=== PATIENT | male | born 1985 | race Caucasian/White ===

== ENCOUNTER 2019-07-30 08:29 | Outpatient (CLI) | payer BC, SELFPAY ==
--- NOTE | 2019-07-31 | US_ITS ---
WS: [id number] Bilateral renal ultrasound, 07/30/2019 Clinical Data: HTN Comparison: None. Findings: The right kidney measures 4.88 cm x 5.2 cm x 12.03 cm and the left kidney is 4.93 cm x 5.46 cm x 11.6 0 cm. There are no cysts, masses or hydronephrosis. The renal cortical margin is normal. No renal padmini culi are seen. The abdominal aorta and inferior vena cava show no vascular abnormalities. The bladder was scanned and was not remarkable. US/US renal BI* [id number] Impression: Negative bilateral renal ultrasound.
== END 2019-07-30 08:30 | disposition home or self-care (01) ==
PROVIDERS: PCP Family Medicine; Visit Provider Family Medicine
DX: I10 Essential (primary) hypertension (principal)
CPT/HCPCS: 76770

== ENCOUNTER 2019-12-17 16:12 | Outpatient (CLI) | payer BC, SELFPAY ==
--- NOTE | 2019-12-17 16:18 | XR_ITS ---
WS: [id number] THORACIC SPINE TECHNIQUE: AP and lateral views are performed. HISTORY: BACK PAIN COMPARISON: None available. Increase in thoracic kyphosis. Pedicles are all identified. Mild degenerative disc disease and osteop hytes most significant at the T11 and T12 levels. No compression fractures are evident. This of mild thickening of the trabecula at T11 and T12 on the lateral radiograph which may be an artifact as they are normal on the AP projection. XR/XR thoracic spine 3V* [id number] IMPRESSION: Moderate spondylosis at the T11 and T12 levels. No fractures identified.
--- NOTE | 2019-12-17 16:18 | XR_ITS ---
WS: [id number] LUMBAR SPINE: 3 VIEWS TECHNIQUE: AP, lateral and L5-S1 spot. HISTORY: BACK PAIN COMPARISON: None available. Normal posterior lumbar alignment. Disc spaces are normal. Minimal hypertrophic endplate changes and mild facet arthritis. No fractures. Pedicles are all identified. No loss of disc space or vertebral body height. SI joints are symmetric bilaterally. No soft tissue abnormalities. XR/XR lumbar spine 2-3V* [id number] IMPRESSION: Mild spondylosis most significant at the L4-5 and L5-S1 levels. No fracture.
== END 2019-12-17 16:13 | disposition home or self-care (01) ==
LOC: RADWPI 16:15
PROVIDERS: PCP Family Medicine; Visit Provider Family Medicine
DX: M54.9 Dorsalgia, unspecified (principal); M47.814 Spondylosis without myelopathy or radiculopathy, thoracic region; M47.817 Spondylosis without myelopathy or radiculopathy, lumbosacral region
CPT/HCPCS: 72072; 72100

== ENCOUNTER 2019-12-29 13:19 | Outpatient (CLI) | payer BC, SELFPAY ==
--- NOTE | 2019-12-29 13:40 | MR_ITS ---
WS: [id number] MRI THORACIC SPINE noncontrast HISTORY: CHRONIC BACK PAIN COMPARISON: No similar studies. TECHNIQUE: Multiplanar sequences are performed in sagittal and axial planes. Slight increase in thoracic kyphosis. No marrow edema or fracture. Mild disc desiccation at T7-8 and T8-9. Signal within the cord is normal. Best seen on the sagittal T1 sequence is low signal intensity along the ligamentum flavum throughout the thoracic spine, most significantly at the T3-4 level thro ugh T9. T1-2: Normal. T2-3: Normal. T3-4: Mild facet joint arthritis. No stenosis. T4-5: Moderate LEFT facet joint arthritis. Encroachment and moderate narrowing of the LEFT foramen. T5-6: Normal. T6-7: Normal. T7-8: There is encroachment upon the posterior thoracic cord by a nodule of decreased signal on the T2 sequences. This is probably ossification associated with the ligamentum flavum. Nodule measures 1 2.9 mm with significant encroachment upon the posterior thecal sac and mild stenosis. Mild central LE FT foraminal stenosis. T8-9: Mild facet arthritis. No stenosis. T9-10: Mild facet arthritis with no stenosis. T10-11: Shallow RIGHT paracentral disc protrusion. T11-12: Normal. MR/MR thoracic spin wo con* [id number] IMPRESSION: 1. Mild central stenosis and LEFT foraminal stenosis at T7-8. 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 There is a large focal area of mine ralization encroaching and abutting the posterior thoracic cord. 2. Ligamentum flavum ossification over multiple levels from the T3-4 level thr ough T9. Variable states of encroachment upon the posterior thecal sac but most significant at T7-8.
--- NOTE | 2019-12-29 13:40 | MR_ITS ---
WS: [id number] MRI LUMBAR SPINE NONCONTRAST HISTORY: CHRONIC BACK PAIN COMPARISON: None. TECHNIQUE: Sagittal and axial multisequence imaging is submitted. Increase in lumbar lordosis. Disc spaces and vertebral body heights are well-preserved. Conus terminates normally at L1-2 disc level. L1-L2: Normal. L2-L3: Mild facet and ligamentum flavum disease. No stenosis. L3-L4: Mild facet and ligamentum flavum disease. No stenosis. L4-L5: Mild annular disc bulge. There is a shallow LEFT foraminal disc protrusion with annular fissur e. Slight narrowing of the LEFT foramen. L5-S1: Diffuse mild annular disc bulging. Mild bilateral foraminal stenosis, RIGHT greater than LEFT. Moderate facet joint arthritis encroaching upon the RIGHT foramen. MR/MR lumbar spine wo con* [id number] IMPRESSION: 1. No significant central stenosis. 2. Mild bilateral foraminal stenosis at L5-S1, greatest on the RIGHT. Moderate facet joint arthritis on the RIGHT. 3. Mild LEFT foraminal stenosis at L4-5.
== END 2019-12-29 13:20 | disposition home or self-care (01) ==
LOC: RADSHAW 13:22
PROVIDERS: PCP Family Medicine; Visit Provider Family Medicine
DX: M54.9 Dorsalgia, unspecified (principal); G89.29 Other chronic pain; M48.04 Spinal stenosis, thoracic region; M48.07 Spinal stenosis, lumbosacral region
CPT/HCPCS: 72146; 72148

== ENCOUNTER 2020-07-26 12:26 | Outpatient (RCR) | payer BC, SELFPAY | END 2020-07-28 23:59 | disposition home or self-care (01) | LOC: SPT 12:26 | PROVIDERS: PCP Nurse Practitioner Family; Referring Provider Nurse Practitioner Family; Visit Provider Nurse Practitioner Family | DX: M54.9 Dorsalgia, unspecified (principal); G89.29 Other chronic pain | CPT/HCPCS: 97161 ==

== ENCOUNTER 2020-07-29 06:00 | Outpatient (RCR) | payer BC, SELFPAY | END 2020-08-28 23:59 | disposition home or self-care (01) | LOC: SPT 06:00 | PROVIDERS: PCP Nurse Practitioner Family; Referring Provider Nurse Practitioner Family; Visit Provider Nurse Practitioner Family | DX: M54.9 Dorsalgia, unspecified (principal) | CPT/HCPCS: 97110; G0283 ==

== ENCOUNTER 2020-08-10 13:40 | Outpatient (CLI) | payer BC, SELFPAY ==
--- NOTE | 2020-08-10 13:49 | US_ITS ---
WS: [id number] ULTRASOUND THYROID TECHNIQUE: Ultrasound of the thyroid. CLINICAL INFORMATION: HYPERTHYROIDISM COMPARISON: None. FINDINGS: Thyroid: Right and left thyroid lobes are enlarged and heterogeneous in echotexture. Dominant solid r ight-sided nodule measuring 4.6 x 2.3 x 3.2 cm. Right thyroid lobe: 9.9 cm x 2.5 cm x 3.0 cm Left thyroid lobe: 7.2 cm x 4.1 cm x 2.8 cm. Isthmus: 1.1 mm. Cervical lymphadenopathy: None. US/US thyroid [id number] IMPRESSION: 1. Enlarged thyroid with heterogeneous echotexture likely due to goiter. Recom mend correlation with thyroid function studies. 2. Dominant solid right thyroid nodule measuring 4.6 cm. This can be further e valuated with FNA
== END 2020-08-10 13:41 | disposition home or self-care (01) ==
PROVIDERS: PCP Internal Medicine; Visit Provider Internal Medicine
DX: E05.90 Thyrotoxicosis, unspecified without thyrotoxic crisis or storm (principal)
CPT/HCPCS: 76536

== ENCOUNTER 2020-08-29 06:00 | Outpatient (RCR) | payer BC, SELFPAY | END 2020-09-25 23:59 | disposition home or self-care (01) | LOC: SPT 06:00 | PROVIDERS: PCP Internal Medicine; Referring Provider Nurse Practitioner Family; Visit Provider Nurse Practitioner Family | DX: G89.29 Other chronic pain (principal); M54.9 Dorsalgia, unspecified | CPT/HCPCS: 97032; 97110; G0283 ==

== ENCOUNTER 2020-09-26 06:00 | Outpatient (RCR) | payer BC, SELFPAY | END 2020-10-26 23:59 | disposition home or self-care (01) | LOC: SPT 06:00 | PROVIDERS: PCP Internal Medicine; Referring Provider Nurse Practitioner Family; Visit Provider Nurse Practitioner Family | DX: M54.9 Dorsalgia, unspecified (principal); G89.29 Other chronic pain | CPT/HCPCS: 97110 ==

== ENCOUNTER 2020-10-28 16:58 | Outpatient (RCR) | payer BC, SELFPAY | END 2020-11-25 23:59 | disposition home or self-care (01) | LOC: SPT 16:58 | PROVIDERS: PCP Internal Medicine; Referring Provider Nurse Practitioner Family; Visit Provider Nurse Practitioner Family | DX: M54.9 Dorsalgia, unspecified (principal); G89.29 Other chronic pain | CPT/HCPCS: 97110 ==

== ENCOUNTER → 2020-11-03 10:36 | Outpatient (BNVA) | payer BC, SELFPAY | PROVIDERS: PCP Internal Medicine; Referring Provider Internal Medicine; Visit Provider Anesthesiology Pain Medicine | DX: M54.9 Dorsalgia, unspecified (principal); M47.816 Spondylosis without myelopathy or radiculopathy, lumbar region; M51.36 Other intervertebral disc degeneration, lumbar region; F17.210 Nicotine dependence, cigarettes, uncomplicated | CPT/HCPCS: 99205 ==

== ENCOUNTER → 2020-11-23 13:48 | Outpatient (BNVA) | payer BC, SELFPAY | PROVIDERS: PCP Internal Medicine; Visit Provider Anesthesiology Pain Medicine | DX: M47.816 Spondylosis without myelopathy or radiculopathy, lumbar region (principal); M54.9 Dorsalgia, unspecified | CPT/HCPCS: 64493; 64494; 64495; J1040; J3490 ==

== ENCOUNTER → 2020-12-08 09:51 | Outpatient (BNVA) | payer BC, SELFPAY | PROVIDERS: PCP Internal Medicine; Visit Provider Anesthesiology Pain Medicine | DX: M54.9 Dorsalgia, unspecified (principal); M47.816 Spondylosis without myelopathy or radiculopathy, lumbar region; M51.36 Other intervertebral disc degeneration, lumbar region; F17.210 Nicotine dependence, cigarettes, uncomplicated | CPT/HCPCS: 99213 ==

== ENCOUNTER 2020-12-21 08:40 | Outpatient (CLI) | payer BC, SELFPAY ==
--- NOTE | 2020-12-21 08:54 | NM_ITS ---
WS: [id number] NUCLEAR MEDICINE THYROID UPTAKE AND SCAN HISTORY: NONTOXIC SINGLE THYROID GOITER COMPARISON: None available. Radionucleotide: 267 uCi Iodine-123 sodium iodide capsule. Oral ingestion. Imaging performed at 24 hours post ingestion of capsule. Marker placed over the chin and suprasternal notch. Homogeneous symmetric distribution throughout the thyroid gland. No area of focal photopenia or incre ased uptake to suggest a hypo or hyperfunctioning nodule. Thyroid gland is slightly enlarged. No phot openic defect. Thyroid uptake at 24 hours: 64%. (Normal uptake at 24 hours 10-30%). NM/NM thyroid uptake multi [id number] IMPRESSION: Mildly enlarged thyroid gland with increased uptake consistent with hyperthyroi dism. Consider Graves' disease or thyroiditis.
== END 2020-12-21 08:41 | disposition home or self-care (01) ==
LOC: RAD 08:46
PROVIDERS: PCP Internal Medicine; Visit Provider Specialist
DX: E01.0 Iodine-deficiency related diffuse (endemic) goiter (principal)
CPT/HCPCS: 78014; A9516

== ENCOUNTER → 2021-01-04 10:02 | Outpatient (BNVA) | payer BC, SELFPAY | PROVIDERS: PCP Internal Medicine; Visit Provider Anesthesiology Pain Medicine | DX: M54.9 Dorsalgia, unspecified (principal); M47.816 Spondylosis without myelopathy or radiculopathy, lumbar region; M51.36 Other intervertebral disc degeneration, lumbar region; F17.210 Nicotine dependence, cigarettes, uncomplicated | CPT/HCPCS: 99214 ==

== ENCOUNTER → 2021-01-16 13:48 | Outpatient (BNVA) | payer BC, SELFPAY | PROVIDERS: PCP Internal Medicine; Visit Provider Anesthesiology Pain Medicine | DX: M47.816 Spondylosis without myelopathy or radiculopathy, lumbar region (principal); M54.9 Dorsalgia, unspecified | CPT/HCPCS: 64493; 64494; 64495; J1040; J3490 ==

== ENCOUNTER → 2021-02-09 08:48 | Outpatient (BNVA) | payer BC, SELFPAY | PROVIDERS: PCP Internal Medicine; Visit Provider Anesthesiology Pain Medicine | DX: M47.816 Spondylosis without myelopathy or radiculopathy, lumbar region (principal); M51.36 Other intervertebral disc degeneration, lumbar region; M79.604 Pain in right leg; M79.605 Pain in left leg; F17.210 Nicotine dependence, cigarettes, uncomplicated | CPT/HCPCS: 99214 ==

== ENCOUNTER → 2021-03-23 10:46 | Outpatient (BNVA) | payer BC, SELFPAY | PROVIDERS: PCP Internal Medicine; Visit Provider Urology | DX: N52.9 Male erectile dysfunction, unspecified (principal); N52.1 Erectile dysfunction due to diseases classified elsewhere; I10 Essential (primary) hypertension | CPT/HCPCS: 81003 ==

== ENCOUNTER 2022-08-01 16:17 | Outpatient (CLI) | payer OTHER, SELFPAY ==
[2022-08-01 21:24] LABS: Free T4 Free Thyroxine 1.33 ng/dL (0.82-1.77); Testosterone Total 297.3 ng/dL (249-836)
[2022-08-04 05:30] LABS: T3 Total 121 ng/dL (76-181)
== END 2022-08-01 16:18 | disposition home or self-care (01) ==
LOC: LAB 16:19
PROVIDERS: PCP Nurse Practitioner Family; Visit Provider Internal Medicine
DX: E05.90 Thyrotoxicosis, unspecified without thyrotoxic crisis or storm (principal); N52.1 Erectile dysfunction due to diseases classified elsewhere; R23.2 Flushing
CPT/HCPCS: 84402; 84403; 84439; 84443; 84480

== ENCOUNTER 2022-08-06 08:08 | Outpatient (CLI) | payer OTHER, SELFPAY ==
[2022-08-10 19:24] LABS: Calculated Total (E+NE) 66 mcg/24 h (26-121)
== END 2022-08-06 08:09 | disposition home or self-care (01) ==
LOC: LAB 08:12
PROVIDERS: PCP Nurse Practitioner Family; Visit Provider Internal Medicine
DX: E05.90 Thyrotoxicosis, unspecified without thyrotoxic crisis or storm (principal); N52.1 Erectile dysfunction due to diseases classified elsewhere; R23.2 Flushing
CPT/HCPCS: 82384

== ENCOUNTER 2023-01-09 16:10 | Outpatient (CLI) | payer OTHER, SELFPAY ==
[2023-01-09 17:24] LABS: Thyroid Stimulating Hormone 2.53 uIU/mL (0.27-4.20)
[2023-01-11 11:26] LABS: T3 Total 124 ng/dL (76-181)
== END 2023-01-09 16:11 | disposition home or self-care (01) ==
PROVIDERS: PCP Nurse Practitioner Family; Visit Provider Internal Medicine
DX: E05.90 Thyrotoxicosis, unspecified without thyrotoxic crisis or storm (principal)
CPT/HCPCS: 36415; 84439; 84443; 84480

== ENCOUNTER → 2023-01-15 15:17 | Outpatient (BNVA) | payer OTHER, SELFPAY | PROVIDERS: PCP Nurse Practitioner Family; Visit Provider Internal Medicine | DX: E05.90 Thyrotoxicosis, unspecified without thyrotoxic crisis or storm (principal); N52.1 Erectile dysfunction due to diseases classified elsewhere; R23.2 Flushing | CPT/HCPCS: 80061 ==

== ENCOUNTER 2023-03-25 16:17 | Outpatient (CLI) | payer OTHER, SELFPAY ==
[2023-03-25 16:54] LABS: Basophils % 0.3 %; Eosinophils # 0.1 10^3/uL (0.0-0.8); Eosinophils % 0.8 %; Hematocrit 39.6 % (37-53); Lymphocytes # 2.2 10^3/uL (0.8-4.8); Lymphocytes % 29.7 %; Mean Corpuscular HGB Conc 33.1 g/dL (30-55); Mean Corpuscular Hemoglobin 27.3 pg (27-33); Mean Corpuscular Volume 82.7 fl (82-101); Mean Platelet Volume 10.8 fL (7.4-10.4); Monocytes # 0.7 10^3/uL (0.2-0.9); Neutrophils # 4.52 10^3/uL (1.8-7.7); Neutrophils % 59.8 %; Nucleated Red Blood Cells % 0 %; Platelet Count 275 10^3/cmm (157-399); Red Blood Count 4.79 10^6/uL (3.85-5.65); Red Cell Distribution Width 13.1 % (12.1-15.1); White Blood Count 7.55 10^3/uL (3.29-11.43)
[2023-03-25 17:28] LABS: Free T4 Free Thyroxine 1.45 ng/dL (0.82-1.77); Prostate Specific Antigen Scr 0.62 ng/mL (0-4); Testosterone Total 308.6 ng/dL (249-836); Thyroid Stimulating Hormone 2.31 uIU/mL (0.27-4.20)
[2023-03-25 19:24] LABS: Follicle Stimulating Hormone 4.1 mIU/mL (1.5-12.4); Luteinizing Hormone 5.9 mIU/mL (1.7-8.6)
[2023-03-27 10:45] LABS: T3 Total 131 ng/dL (76-181)
[2023-03-29 15:03] LABS: Testosterone, Free 75.6 pg/mL (46.0-224.0)
== END 2023-03-25 16:18 | disposition home or self-care (01) ==
PROVIDERS: PCP Nurse Practitioner Family; Visit Provider Internal Medicine
DX: E05.90 Thyrotoxicosis, unspecified without thyrotoxic crisis or storm (principal)
CPT/HCPCS: 83001; 83002; 84402; 84403; 84439; 84443; 84480; 85025; G0103

== ENCOUNTER → 2023-07-02 11:08 | Outpatient (BNVA) | payer OTHER, SELFPAY | PROVIDERS: PCP Nurse Practitioner Family; Visit Provider Internal Medicine | DX: E05.90 Thyrotoxicosis, unspecified without thyrotoxic crisis or storm (principal) | CPT/HCPCS: 36415; 84439; 84443; 84480 ==

== ENCOUNTER 2023-09-09 07:54 | Outpatient (CLI) | payer OTHER, SELFPAY ==
[2023-09-09 09:11] LABS: Free T4 Free Thyroxine 1.22 ng/dL (0.82-1.77); Thyroid Stimulating Hormone 1.83 uIU/mL (0.27-4.20)
[2023-09-09 09:33] LABS: Total Volume Urine 2100 ml
[2023-09-09 09:48] LABS: Urine Creatinine 122 mg/dL (39-259)
[2023-09-10 09:50] LABS: T3 Total 147 ng/dL (76-181)
[2023-09-18 15:49] LABS: Free Cortisol Urine 45.8 mcg/24 h (4.0-50.0); Total Urine 2100 mL; Urine Creatinine 2.35 g/24 h (0.50-2.15)
== END 2023-09-09 07:55 | disposition home or self-care (01) ==
LOC: LAB 07:56
PROVIDERS: PCP Nurse Practitioner Family; Visit Provider Internal Medicine
DX: E05.90 Thyrotoxicosis, unspecified without thyrotoxic crisis or storm (principal); N52.1 Erectile dysfunction due to diseases classified elsewhere
CPT/HCPCS: 36415; 82530; 82570; 84439; 84443; 84480

== ENCOUNTER 2023-12-23 16:41 | Observation (INO) | payer OTHER, SELFPAY ==
[2023-12-23] VITALS (7 sets, daily range): BP systolic 135–157; BP diastolic 70–93; PULSE 68–83; RESP 17–20; TEMP 36.6–37.1; O2SAT 94–98
--- NOTE | 2023-12-23 16:50 | ECG_ITS ---
[facility] Test Date: 2023-12-23 Pat Name: Minh Solis Department: Room: Gender: Male C.O.D. Biller: : 1985 Requested By: Emerita Cerda Order Number: [id number] Keyon MD: Abbi Barrera M.D. Measurements Intervals [place] Rate: 77 P: -4 [place]: 185 QRS: -30 QRSD: 82 T: 38 QT: 343 QTc: 390 Interpretive Statements SINUS RHYTHM MODERATE VOLTAGE CRITERIA FOR LVH, CONSIDER NORMAL VARIANT [MEETS CRITERIA IN ONE OF: R(aVL), S(V1), R(V5), R(V5/V6)+S(V1)] POSSIBLE ANTERIOR MYOCARDIAL INFARCTION , OF INDETERMINATE AGE [30 ms Q WAVE IN V3/V4, OR R < 0.2 mV IN V4] INTERPRETATION BASED ON A DEFAULT AGE OF 40 YEARS Compared to ECG 05/14/2019 14:41:50 Myocardial infarct finding now present ST (T wave) deviation no longer present Electronically Signed On 12-23-2023 17:31:30 CDT by Abbi Barrera M.D. [email or web address]/store/NU/[id number] colon
--- NOTE | 2023-12-23 16:50 | XRR_ITS ---
PROCEDURE INFORMATION: Exam: XR Chest Exam date and time: 12/23/2023 4:58 PM Age: 38 years old Clinical indication: Pain; Chest pressure; Additional info: Chest pain TECHNIQUE: Imaging protocol: Radiologic exam of the chest. Views: 1 view. COMPARISON: MR thoracic spin wo con* [id number] 12/29/2019 2:25 PM FINDINGS: Lungs: No focal consolidation. Pleural spaces: No evidence of pneumothorax. No evidence of pleural effusion. Heart/Mediastinum: Cardiomediastinal silhouette is within normal limits. Bones/joints: No evidence of acute osseous abnormality. XR/XR chest 1V portable [id number] IMPRESSION: 1. No acute cardiopulmonary abnormality.
--- NOTE | 2023-12-23 16:59 | ED_ITS ---
Documented by User: Bryanna Guerra MD 12/23/23 17:05 HPI - Chest Pain 2 General: Chief Complaint: Chest Pain Stated Complaint: chest tightness, sob Time Seen by Provider: 12/23/23 16:56 History of Present Illness: 38-year-old man with a history of obesit y, hypertension and prediabetes who presents to the emergency room with chest pain for about 6 hours now. He says he has been feeling a tightness in his chest with occasional sharp twinges. A numbness in his left arm. He has no previous known cardiac history. He says his dad did have a heart attack but it was not when he was very young. He quit smoking about a year ago. No cough. No fevers. No lower extremity swelling. No nausea or vomiting. No diaphoresis. Review of Systems 2 Narrative: Constitutional symptoms: Negative except as documented in HPI. Skin symptoms: Negative except as documented in HPI. Eye symptoms: Negative except as documented in HPI. ENMT symptoms: Negative except as documented in HPI. Respiratory symptoms: Negative except as documented in HPI. Cardiovascular symptoms: Negative except as documented in HPI. Gastrointestinal symptoms: Negative except as documented in HPI. Genitourinary symptoms: Negative except as documented in HPI. Musculoskeletal symptoms: Negative except as documented in HPI. Neurologic symptoms: Negative except as documented in HPI. Psychiatric symptoms: Negative except as documented in HPI. Endocrine symptoms: Negative except as documented in HPI. PFSH ED 2 PFSH: Medical History Erectile dysfunction Hypertension Hyperthyroidism Family History Mother , natural causes, IN LATE 40'S No problems noted. Father , AT AGE 60 Heart attack Social History Smoking and tobacco/nicotine status: former use of tobacco/nicotine Quit status (tobacco/nicotine): has quit using Alcohol intake: never Substance/Drug Use: current Substance/Drug use frequency: few times a week Marital status: Single Current occupational status: unemployed Physical Exam 2 Narrative: EXAM NARRATIVE: General: Alert, no acute distress. Skin: Warm, dry. Head: Normocephalic, atraumatic. Neck: Supple, trachea midline. Eye: Extraocular movements are intact. Ears, nose, mouth and throat: mucosa moist. Cardiovascular: Regular, Normal peripheral perfusion. Respiratory: Lungs are clear to auscultation, respirations are non-labored, breath sounds are equal, Symmetrical chest wall expansion. Gastrointestinal: Soft, Nontender, Non distended, Normal bowel sounds. Musculoskeletal: Normal ROM, no deformity. Neurological: Alert and oriented, No focal neurological deficit observed. Psychiatric: Cooperative, appropriate mood & affect. Course 2 Vital Signs: Vital signs: Vital Signs Temperature 98.6 F 12/23/23 20:27 Pulse Rate 68 12/23/23 20:27 Respiratory Rate 17 12/23/23 20:27 Blood Pressure 139/86 12/23/23 20:27 Pulse Oximetry 94 12/23/23 20:27 Oxygen Delivery Me thod Room Air 12/23/23 20:27 MDM - Chest Pain Medical Decision Making Differential diagnosis for patient with chest pain includes but is not limited to and based on the above HPI, review of systems and physical exam: Pneumonia. unstable angina. angina. Acute coronary syndrome / NM. Pulmonary embolism. Costochondritis / musculoskeletal. Pleurisy. Pericarditis. Esophageal spasm. Pancreatis. Cholecystitis. Workup: Lab work, chest X-ray and EKG ordered to evaluate, rule in and rule out above pathologies. EKG: Time 1641 rate 77. Normal sinus rhythm, nonspecific ST changes/Q waves., no ectopy, normal MA & QRS intervals, This was reviewed and interpreted by myself the ER physician at 1643 Chest x-ray: No acute process. No infiltrate. No pneumothorax. No cardiomegaly. This was reviewed and interpreted by myself the ER physician. Lab Review: Laboratory results were reviewed and interpreted by myself the emergency room physician. I reviewed the patient's medical record. Reexamination: Lab Data 12/23/23 17:52 12/23/23 17:52 Radiology Impressions Chest X-Ray 12/23/23 16:50 IMPRESSION: 1. No acute cardiopulmonary abnormality. Laboratory Results WBC 6.12 10^3/uL (3.29-11.43) 12/23/23 17:52 RBC 4.80 10^6/uL (3.85-5.65) 12/23/23 17:52 Hgb 13.10 g/dL (11.27-16.99) 12/23/23 17:52 Hct 40.3 % (37-53) 12/23/23 17:52 MCV 84.0 fl (82-101) 12/23/23 17:52 MCH 27.3 pg (27-33) 12/23/23 17:52 MCHC 32.5 g/dL (30-55) 12/23/23 17:52 RDW 13.2 % (12.1-15.1) 12/23/23 17:52 Plt Count 266 10^3/cmm (157-399) 12/23/23 17:52 MPV 10.8 fL (7.4-10.4) H 12/23/23 17:52 Neut % (Auto) 55.9 % 12/23/23 17:52 Lymph % (Auto) 28.1 % 12/23/23 17:52 Deuel % (Auto) 13.9 % 12/23/23 17:52 Eos % (Auto) 1.1 % 12/23/23 17:52 Baso % (Auto) 0.3 % 12/23/23 17:52 Neut # (Auto) 3.42 10^3/uL (1.8-7.7) 12/23/23 17:52 Lymph # (Auto) 1.7 10^3/uL (0.8-4.8) 12/23/23 17:52 Deuel # (Auto) 0.9 10^3/uL (0.2-0.9) 12/23/23 17:52 Eos # (Auto) 0.1 10^3/uL (0.0-0.8) 12/23/23 17:52 Baso # (Auto) 0.0 10^3/uL (0.0-0.1) 12/23/23 17:52 Nucleated RBC % (auto) 0 % 12/23/23 17:52 Nucleated RBCs # 0.0 /100WBC 12/23/23 17:52 D-Dimer 0.46 ug/mLFEU (0-0.59) 12/23/23 17:52 Sodium 137 mmol/L (136-145) 12/23/23 17:52 Potassium 4.2 mmol/L (3.5-5.1) 12/23/23 17:52 Chloride 103 mmol/L (98-107) 12/23/23 17:52 Carbon Dioxide 22 mmol/L (22-29) 12/23/23 17:52 Anion Gap 16.2 (5-19) 12/23/23 17:52 BUN 16 mg/dL (6-20) 12/23/23 17:52 Creatinine 0.6 mg/dL (0.7-1.2) L 12/23/23 17:52 GFR Calculation 151.6 mL/min (90-130) H 12/23/23 17:52 Glucose 115 mg/dL (65-115) 12/23/23 17:52 Calculated Osmolality 286 mOsm/kg (285-295) 12/23/23 17:52 Calcium 8.8 mg/dL (8.5-10.5) 12/23/23 17:52 Total Bilirubin 0.4 mg/dL (0.15-1.2) 12/23/23 17:52 AST 23 U/L (0-40) 12/23/23 17:52 ALT 32 U/L (0-41) 12/23/23 17:52 Alkaline Phosphatase 118 U/L (40-130) 12/23/23 17:52 Troponin T Baseline 36 ng/L (0-15) H 12/23/23 17:52 Total Protein 7.0 g/dL (6.6-8.7) 12/23/23 17:52 Albumin 4.5 g/dL (3.5-5.2) 12/23/23 17:52 Globulin 2.5 g/dL (1.3-4.6) 12/23/23 17:52 Discharge Plan Discharge Patient Disposition: Placed in Observation Admit Provider: Jacinto Pillai Clinical Impression: Non-ST elevation NM (NSTEMI) Coding Level of Care Code ED Fretted Instruments Inspector for Chg Fwd Documented by User: Parish Carvajal MD 12/23/23 20:32 HPI - Chest Pain 2 General: Chief Complaint: Chest Pain Stated Complaint: chest tightness, sob Time Seen by Provider: 12/23/23 16:56 [facility] ED 2 PFS: Medical History Erectile dysfunction Hypertension Hyperthyroidism Family History Mother , natural causes, IN LATE 40'S No problems noted. Father , AT AGE 60 Heart attack Social History Smoking and tobacco/nicotine status: former use of tobacco/nicotine Quit status (tobacco/nicotine): has quit using Alcohol intake: never Substance/Drug Use: current Substance/Drug use frequency: few times a week Marital status: Single Current occupational status: unemployed Course 2 Vital Signs: Vital signs: Vital Signs Temperature 98.6 F 12/23/23 20:27 Pulse Rate 68 12/23/23 20:27 Respiratory Rate 17 12/23/23 20:27 Blood Pressure 139/86 12/23/23 20:27 Pulse Oximetry 94 12/23/23 20:27 Oxygen Delivery Me thod Room Air 12/23/23 20:27 MDM - Chest Pain Medical Decision Making Differential diagnosis for patient with chest pain includes but is not limited to and based on the above HPI, review of systems and physical exam: Pneumonia. unstable angina. angina. Acute coronary syndrome / NM. Pulmonary embolism. Costochondritis / musculoskeletal. Pleurisy. Pericarditis. Esophageal spasm. Pancreatis. Cholecystitis. Workup: Lab work, chest X-ray and EKG ordered to evaluate, rule in and rule out above pathologies. EKG: Time 1641 rate 77. Normal sinus rhythm, nonspecific ST changes/Q waves., no ectopy, normal MA & QRS intervals, This was reviewed and interpreted by myself the ER physician at 1643 Chest x-ray: No acute process. No infiltrate. No pneumothorax. No cardiomegaly. This was reviewed and interpreted by myself the ER physician. Lab Review: Laboratory results were reviewed and interpreted by myself the emergency room physician. I reviewed the patient's medical record. Patient presents here with chest pain he does have an elevated troponin consistent with an NSTEMI spoke to the hospitalist will admit at this time. His EKG here showed no ST elevation he has been chest pain-free here. Lab Data 12/23/23 17:52 12/23/23 17:52 Radiology Impressions Chest X-Ray 12/23/23 16:50 IMPRESSION: 1. No acute cardiopulmonary abnormality. Laboratory Results WBC 6.12 10^3/uL (3.29-11.43) 12/23/23 17:52 RBC 4.80 10^6/uL (3.85-5.65) 12/23/23 17:52 Hgb 13.10 g/dL (11.27-16.99) 12/23/23 17:52 Hct 40.3 % (37-53) 12/23/23 17:52 MCV 84.0 fl (82-101) 12/23/23 17:52 MCH 27.3 pg (27-33) 12/23/23 17:52 MCHC 32.5 g/dL (30-55) 12/23/23 17:52 RDW 13.2 % (12.1-15.1) 12/23/23 17:52 Plt Count 266 10^3/cmm (157-399) 12/23/23 17:52 MPV 10.8 fL (7.4-10.4) H 12/23/23 17:52 Neut % (Auto) 55.9 % 12/23/23 17:52 Lymph % (Auto) 28.1 % 12/23/23 17:52 Deuel % (Auto) 13.9 % 12/23/23 17:52 Eos % (Auto) 1.1 % 12/23/23 17:52 Baso % (Auto) 0.3 % 12/23/23 17:52 Neut # (Auto) 3.42 10^3/uL (1.8-7.7) 12/23/23 17:52 Lymph # (Auto) 1.7 10^3/uL (0.8-4.8) 12/23/23 17:52 Deuel # (Auto) 0.9 10^3/uL (0.2-0.9) 12/23/23 17:52 Eos # (Auto) 0.1 10^3/uL (0.0-0.8) 12/23/23 17:52 Baso # (Auto) 0.0 10^3/uL (0.0-0.1) 12/23/23 17:52 Nucleated RBC % (auto) 0 % 12/23/23 17:52 Nucleated RBCs # 0.0 /100WBC 12/23/23 17:52 D-Dimer 0.46 ug/mLFEU (0-0.59) 12/23/23 17:52 Sodium 137 mmol/L (136-145) 12/23/23 17:52 Potassium 4.2 mmol/L (3.5-5.1) 12/23/23 17:52 Chloride 103 mmol/L (98-107) 12/23/23 17:52 Carbon Dioxide 22 mmol/L (22-29) 12/23/23 17:52 Anion Gap 16.2 (5-19) 12/23/23 17:52 BUN 16 mg/dL (6-20) 12/23/23 17:52 Creatinine 0.6 mg/dL (0.7-1.2) L 12/23/23 17:52 GFR Calculation 151.6 mL/min (90-130) H 12/23/23 17:52 Glucose 115 mg/dL (65-115) 12/23/23 17:52 Calculated Osmolality 286 mOsm/kg (285-295) 12/23/23 17:52 Calcium 8.8 mg/dL (8.5-10.5) 12/23/23 17:52 Total Bilirubin 0.4 mg/dL (0.15-1.2) 12/23/23 17:52 AST 23 U/L (0-40) 12/23/23 17:52 ALT 32 U/L (0-41) 12/23/23 17:52 Alkaline Phosphatase 118 U/L (40-130) 12/23/23 17:52 Troponin T Baseline 36 ng/L (0-15) H 12/23/23 17:52 Total Protein 7.0 g/dL (6.6-8.7) 12/23/23 17:52 Albumin 4.5 g/dL (3.5-5.2) 12/23/23 17:52 Globulin 2.5 g/dL (1.3-4.6) 12/23/23 17:52 All radiology interpretation(s) finalized by discharge Discharge Plan Discharge Patient Disposition: Placed in Observation Admit Provider: Jacinto Pillai Clinical Impression: Non-ST elevation NM (NSTEMI) Coding Level of Care Code ED Fretted Instruments Inspector for Mikaela Oliva
[2023-12-23 18:02] LABS: Basophils % 0.3 %; Eosinophils # 0.1 10^3/uL (0.0-0.8); Eosinophils % 1.1 %; Hematocrit 40.3 % (37-53); Lymphocytes # 1.7 10^3/uL (0.8-4.8); Lymphocytes % 28.1 %; Mean Corpuscular HGB Conc 32.5 g/dL (30-55); Mean Corpuscular Hemoglobin 27.3 pg (27-33); Mean Platelet Volume 10.8 fL (7.4-10.4); Monocytes # 0.9 10^3/uL (0.2-0.9); Monocytes % 13.9 %; Neutrophils # 3.42 10^3/uL (1.8-7.7); Neutrophils % 55.9 %; Nucleated Red Blood Cells % 0 %; Platelet Count 266 10^3/cmm (157-399); Red Cell Distribution Width 13.2 % (12.1-15.1); White Blood Count 6.12 10^3/uL (3.29-11.43)
[2023-12-23 18:23] LABS: Alanine Aminotransferase 32 U/L (0-41); Albumin Level 4.5 g/dL (3.5-5.2); Alkaline Phosphatase 118 U/L (40-130); Anion Gap 16.2 (5-19); Aspartate Amino Transferase 23 U/L (0-40); Blood Urea Nitrogen 16 mg/dL (6-20); Calcium 8.8 mg/dL (8.5-10.5); Carbon Dioxide 22 mmol/L (22-29); Chloride 103 mmol/L (98-107); Creatinine Clr Calc Pharmacy 260.3468; Globulin 2.5 g/dL (1.3-4.6); Glomerular Filtration Rate 151.6 mL/min (90-130); Glucose 115 mg/dL (65-115); Osmolality Calculated 286 mOsm/kg (285-295); Potassium 4.2 mmol/L (3.5-5.1); Sodium 137 mmol/L (136-145); Total Bilirubin 0.4 mg/dL (0.15-1.2); Troponin(5th) Baseline 36 ng/L (0-15)
[2023-12-23 18:43] LABS: D Dimer 0.46 ug/mLFEU (0-0.59)
--- NOTE | 2023-12-23 18:50 | ECG_ITS ---
[facility] Test Date: 2023-12-23 Pat Name: Minh Solis Department: Room: Gender: Male Reading Instructor: : 1985 Requested By: Emerita Cerda Order Number: [id number] Keyon MD: Leonel Cano M.D. Measurements Intervals [place] Rate: 72 P: -4 [place]: 192 QRS: -29 QRSD: 88 T: 23 QT: 354 QTc: 388 Interpretive Statements SINUS RHYTHM BORDERLINE LEFT AXIS DEVIATION [QRS AXIS < -20] MODERATE VOLTAGE CRITERIA FOR LVH, CONSIDER NORMAL VARIANT [MEETS CRITERIA IN ONE OF: R(aVL), S(V1), R(V5), R(V5/V6)+S(V1)] Compared to ECG 12/23/2023 16:41:47 Myocardial infarct finding no longer present Electronically Signed On 12-24-2023 16:53:36 CDT by Leonel Cano M.D. [id number]
[2023-12-23 20:04] LABS: Troponin 5 2HR 99.53 ng/L (0-15)
[2023-12-23 20:07] LABS: Troponin 5 2HR Delta 63.53 ABS# (0-10)
--- NOTE | 2023-12-23 20:39 | USCV_ITS ---
Minh Solis Age: 38 Gender: M : 1985 Exam Date: 12/23/2023 21:22 Ordering Phys: Jacinto Pillai MD Technologist: IHSAN [place]am [place] [facility] [place] Indication: nstemi. History of HTN, obesity, pre-DM. Long-term smoker, trying to quit x 1 yr. BP: 139 / 86 HR: 70 Rhythm: Sinus Technical Quality: Adequate with [employer] MEASUREMENTS (Male / Female) Normal Values 2D ECHO LV Diastolic Diameter PLAX 4.4 cm 4.2 - 5.9 / 3.9 - 5.3 cm IVS Diastolic Thickness 1.1 cm 0.6 - 1.0 / 0.6 - 0.9 cm IVS Systolic Thickness 1.5 cm LVPW Diastolic Thickness 1.4 cm 0.6 - 1.0 / 0.6 - 0.9 cm LVPW Systolic Thickness 1.7 cm LVOT Diameter 2.3 cm LV Ejection Fraction 2D Teich 54.2 % LV Ejection Fraction MOD 2C 60.3 % LV Ejection Fraction 2C AL 59.2 % LA Diameter 4.4 cm LA Sys Volume AL 73.4 cm cubed LA Sys Volume Index AL 25.4 cm cubed/m squared Aorta at Sinotubular Diameter 3.2 cm IVC Diameter 1.5 cm M-MODE LA Ao Ratio MM 1.2 AV Cusp Separation MM 1.5 cm DOPPLER AV Peak Velocity 97.0 cm/s LVOT Peak Velocity 95.0 cm/s AV Area Cont Eq vti 5.4 cm squared AV Area Cont Eq pk 4.0 cm squared MV Peak Velocity 104.0 cm/s MV Area PHT 5.0 cm squared Mitral E to A Ratio 1.4 TV Peak E Velocity 56.0 cm/s PV Peak Velocity 82.0 cm/s FINDINGS Left Ventricle Technically limited quality echocardiogram. LV systolic function is normal in size. LV systolic function is normal with EF of 55 to 60%. No regional wall motion abnormalities are seen. Right Ventricle Grossly normal Right Atrium Grossly normal Left Atrium Grossly normal Mitral Valve Grossly normal. Mild mitral regurgitation Aortic Valve Grossly normal. No significant stenosis. Tricuspid Valve Insufficient TR jet to calculate RVSP Pulmonic Valve Not well visualized Pericardium Not well visualized Aorta Not well visualized IVC Appears to be normal CONCLUSIONS Technically limited quality echocardiogram. LV systolic function is normal with EF of 55 to 60%. Valvular structures not well-visualized. Mild mitral regurgitation No comparison studies are available. Leonel Cano MD (Electronically Signed) Final Date: 24 Dec 2023 17:12 S
--- NOTE | 2023-12-23 20:41 | P.HP_ITS ---
Providers/Chief Complaint 2 Admitting Physician: Jacinto Pillai Primary Care Provider: Vianca Chow Chief Complaint: chest tightness, sob History of Present Illness Very pleasant 38-year-old gentleman with past history of smoking, smoked for 22 years since age of 16, but has since quit, hypertension, he states prediabetes, Lays on metformin, possible diabetes, obesity, history of heart disease in his family, started experiencing chest tightness 30 minutes after waking up this morning, states at that time blood pressure was 160 systolic, he was going to see wrestling match at his friend's house, their blood pressure was 130 systolic. He states his symptoms did not improve and were worsening so he decided to come in for evaluation. With tightness he is having some intermittent chest pain/stabbing as well on the left side radiating to his left arm. No respiratory symptoms. D-dimer was unremarkable in ER. Review of Systems 2 Const: Denies: fever(s), chills, body aches or malaise Card: Reports: chest pain; Denies: edema, pre-syncope or dyspnea on exertion Resp: Denies: dyspnea, productive cough, change in phlegm color or hemoptysis GI: Denies: abdominal pain, nausea, vomiting, diarrhea, constipation, hematochezia or melena : Denies: flank pain, difficulty urinating, urinary frequency or hematuria Musc: Denies: back pain, joint swelling or joint redness Skin/Breast: Denies: rash or new lesions Neuro: Denies: headache(s) or dizziness Medications/Allergies Home Medications Medication Instructions Recorded Confirmed Last Taken Type amlodipine 10 mg tablet 10 mg PO DAILY 11/03/20 12/23/23 12/23/23 History carvedilol 25 mg tablet 25 mg PO BID 11/03/20 12/23/23 12/23/23 History simvastatin 10 mg tablet 10 mg PO DAILY 11/03/20 12/23/23 12/23/23 History spironolactone 25 mg tablet 25 mg PO DAILY 11/03/20 12/23/23 12/23/23 History irbesartan 300 1 tab PO DAILY 03/23/21 12/23/23 12/23/23 History mg-hydrochlorothiazide 12.5 mg tablet metformin 500 mg tablet,extended See Rx Instructions .Route 12/10/23 12/23/23 12/23/23 Rx release 24 hr .COMPLEX #270 tabs testosterone 338 mg PO BID 12/23/23 12/23/23 12/23/23 History Allergies Allergy/AdvReac Type Severity Reaction Status Date / Time amoxicillin Allergy unknown Verified 10/01/23 09:02 PFSH Acute 2 PFSH: Medical History Presence of surgical screw in left hand Erectile dysfunction Hypertension Hyperthyroidism Surgical History History of tonsillectomy Family History Mother , natural causes, IN LATE 40'S No problems noted. Father , AT AGE 60 Heart attack Social History Smoking and tobacco/nicotine status: former use of tobacco/nicotine Quit status (tobacco/nicotine): has quit using Alcohol intake: never Substance/Drug Use: current Substance/Drug use frequency: few times a week Marital status: Single Current occupational status: unemployed Vitals/I&O/Wt Last Vital Signs Temp 98.6 F 12/23/23 20:28 Pulse 68 12/23/23 20:28 Resp 17 12/23/23 20:28 BP 139/86 12/23/23 20:28 Pulse Ox 94 12/23/23 20:28 O2 Del Method Room Air 12/23/23 20:28 Weight last 48 hrs Weight 153.087 kg Weight 153.087 kg Weight 149.685 kg Physical Exam 2 Const: COMMON NORMALS: patient oriented x3 and alert GENERAL APPEARANCE: c ooperative NUTRITIONAL APPEARANCE: obese ORIENTATION/CONSCIOUSNESS: Yes awake HENMT: COMMON NORMALS: oropharynx normal Neck/C-Spine: COMMON NORMALS: no JVD Resp: COMMON NORMALS: normal respiratory effort and clear to auscultation bilaterally AUSCULTATION: clear to auscultation bilaterally Cardio: COMMON NORMALS: no JVD, regular rhythm, S1 normal heart sound present, S2 normal heart sound present and No murmurs present (Cardio) RHYTHM: regular rhythm HEART SOUNDS: S1 normal heart sound present and S2 normal heart sound present GI: COMMON NORMALS: Normal to inspection, nondistended, normoactive bowel sounds present, Soft to palpation and non-tender PALPATION: Yes Soft to palpation Extremity: COMMON NORMALS: no joint enlargement and no pedal edema Neuro: COMMON NORMALS: patient oriented x3 and moves all extremities S ENSORIUM/ORIENTATION: Yes alert Skin: COMMON NORMALS: no rashes or lesions noted GENERAL SKIN EXAM: no rashes or lesions noted Data 12/23/23 17:52 12/23/23 17:52 A&P Assessment and plan (1) Non-ST elevation MA (NSTEMI): Reviewed vitals, CBC, D-dimer, CMP, EKG, troponin series, chest x-ray, ER note, discussed with ER provider. Discussed with patient and candy dipper hand. Chest tightness, intermittent stabbing pain, radiation to left arm. Cardiac risk factors including history of smoking, family history of heart disease. Hypertension, obesity, prediabetes versus diabetes. EKG with possible LVH, without obvious acute MA on my interpretation, pending official read. Troponin with mild elevation initially but with positive delta, 36 up to 99.53. Discussed with him NSTEMI, additional consultation with cardiology, aspirin, Lovenox, statin, continue carvedilol. Monitor on telemetry with risk of arrhythmia with NSTEMI. D-dimer is not elevated. No respiratory symptoms. Clinical presentation without suggestion of dissection of pneumonia, however, monitor for any changes in symptoms, blood pressure, complete cardiac evaluation. He is also on testosterone -additional risk factor. Nitroglycerin as needed. Acetaminophen as needed. Consider nitroglycerin drip if needed. Atorvastatin, benefit from change to high intensity statin at discharge. Check A1c. Monitor for risk of bleeding with aspirin, Lovenox anticoagulation. Follow-up CBC. Follow-up renal function. Discussed with him considerations regarding further workup, consideration of possible coronary angiography. N.p.o. for midnight. (2) Hypertension: Blood pressure is very currently 139/86. Continue home blood pressure medicines, carvedilol, amlodipine, irbesartan/HCTZ, spironolactone. Qualifiers: Hypertension type: unspecified Qualified Code(s): I10 - Essential (primary) hypertension Plan Prediabetes versus diabetes, he states prediabetes, although he is on metformin, A1c is not known, I cannot pull up any old values. He is not sure about what the A1c is. Hold metformin. Low-dose sliding scale while in the hospital. CC diet. Check A1c Obesity: Would benefit from follow-up with primary provider regarding weight loss options. Amoxicillin allergy: He is not sure what regarding what the allergy is, states has been told about it since he was little. Attestations 2 Medical Necessity Statement*: Place in observation for additional assessment management of NSTEMI in a gentleman with cardiovascular risk factors. Diagnoses Non-ST elevation MA (NSTEMI) I21.4 Hypertension, unspecified type I10 Hypertension type: unspecified
[2023-12-23] MEDS: enoxaparin 100 mg/mL Syringe 150 MG SUBCUT (20:51)
[2023-12-23 21:34] LABS: Glucose Point of Care 97 mg/dL (70-110)
[2023-12-23] MEDS: carvedilol 25 mg Tablet PO (22:01)
[2023-12-23] MEDS: aspirin 325 mg Tablet PO (22:01)
[2023-12-23 23:26] LABS: Troponin 5 6HR 178.4 ng/L (0-15); Troponin 5 6HR Delta 142.4 ng/L (0-12)
[2023-12-24] VITALS (109 sets, daily range): BP systolic 118–153; BP diastolic 73–100; PULSE 62–101; RESP 8–29; TEMP 36.7–37.1; O2SAT 92–98
[2023-12-24 03:30] LABS: Basophils % 0.3 %; Eosinophils # 0.1 10^3/uL (0.0-0.8); Lymphocytes # 2.4 10^3/uL (0.8-4.8); Lymphocytes % 35.5 %; Mean Corpuscular Hemoglobin 27.4 pg (27-33); Mean Corpuscular Volume 85.5 fl (82-101); Mean Platelet Volume 10.9 fL (7.4-10.4); Monocytes # 0.7 10^3/uL (0.2-0.9); Monocytes % 10.5 %; Neutrophils # 3.53 10^3/uL (1.8-7.7); Neutrophils % 52.3 %; Nucleated Red Blood Cells % 0 %; Platelet Count 252 10^3/cmm (157-399); Red Blood Count 4.68 10^6/uL (3.85-5.65); Red Cell Distribution Width 13.3 % (12.1-15.1); White Blood Count 6.76 10^3/uL (3.29-11.43)
[2023-12-24 03:52] LABS: Estmated Average Glucose 128; Hemoglobin A1C 6.1 % (4.0-6.0)
[2023-12-24 03:54] LABS: Anion Gap 14.9 (5-19); Blood Urea Nitrogen 17 mg/dL (6-20); Calcium 8.8 mg/dL (8.5-10.5); Carbon Dioxide 24 mmol/L (22-29); Chloride 104 mmol/L (98-107); Creatinine Clr Calc Pharmacy 197.6935; Glomerular Filtration Rate 108.8 mL/min (90-130); Glucose 107 mg/dL (65-115); Osmolality Calculated 290 mOsm/kg (285-295); Potassium 3.9 mmol/L (3.5-5.1); Sodium 139 mmol/L (136-145)
--- NOTE | 2023-12-24 05:04 | PC.RESP ---
EKG ORDERED 12/23/2023 AT 2250, NOT COMPLETED, RT NOT AVAILABLE.
--- NOTE | 2023-12-24 06:08 | P.CONIM_ITS ---
Providers/Reason For Consult 2 Consulting Physician/Specialty*: Leonel Cano MD/ Cardiology Reason for Consult*: NSTEMI Requesting Physician: Dr Pillai Attending Physician: Jacinto Pillai Primary Care Provider: Vianca Chow History of Present Illness History of Present Illness Minh Solis is a 38 year old male with past medical history of hypertension, hyperlipidemia who has presented to hospital with significant substernal chest pain. Pain started yesterday morning. Has been having on and off pain and it is still ongoing. However it is milder now. Initial troponin was 36 that has trended up to 178 at 6 hours. EKG shows non specific ST T wave changes. Patient has significant prior smoking history and has prediabetes . Review of Systems 2 Const: Denies: fever(s), chills, body aches or malaise Card: Reports: chest pain; Denies: edema, pre-syncope or dyspnea on exertion Resp: Denies: dyspnea, productive cough, change in phlegm color or hemoptysis GI: Denies: abdominal pain, nausea, vomiting, diarrhea, constipation, hematochezia or melena : Denies: flank pain, difficulty urinating, urinary frequency or hematuria Musc: Denies: back pain, joint swelling or joint redness Skin/Breast: Denies: rash or new lesions Neuro: Denies: headache(s) or dizziness Medications/Allergies Home Medications Medication Instructions Recorded Confirmed Last Taken Type amlodipine 10 mg tablet 10 mg PO DAILY 11/03/20 12/23/23 12/23/23 History carvedilol 25 mg tablet 25 mg PO BID 11/03/20 12/23/23 12/23/23 History spironolactone 25 mg tablet 25 mg PO DAILY 11/03/20 12/23/23 12/23/23 History irbesartan 300 1 tab PO DAILY 03/23/21 12/23/23 12/23/23 History mg-hydrochlorothiazide 12.5 mg tablet metformin 500 mg tablet,extended See Rx Instructions .Route 12/10/23 12/23/23 12/23/23 Rx release 24 hr .COMPLEX #270 tabs testosterone 338 mg PO BID 12/23/23 12/23/23 12/23/23 History aspirin 81 mg tablet,delayed 81 mg PO DAILY 30 days #30 tabs 12/25/23 Unknown Rx release atorvastatin 40 mg tablet 40 mg PO DAILY 30 days #30 tabs 12/25/23 Unknown Rx clopidogrel 75 mg tablet 75 mg PO DAILY 30 days #30 tabs 12/25/23 Unknown Rx Allergies Allergy/AdvReac Type Severity Reaction Status Date / Time amoxicillin Allergy unknown Verified 10/01/23 09:02 Current Medications Generic Name Dose Route Start Last Admin Trade Name Freq PRN Reason Stop Dose Admin Aspirin 325 mg 12/23/23 20:35 12/23/23 22:01 Aspirin 325 Mg Tablet PO 325 mg DAILY MORRIS Administration Carvedilol 25 mg 12/23/23 20:50 12/23/23 22:01 Carvedilol 25 Mg Tablet PO 25 mg BID MORRIS Administration Enoxaparin Sodium 150 mg 12/23/23 20:30 12/23/23 20:51 Enoxaparin 100 Mg/Ml Syringe 1 mg/kg (150 mg) 150 mg SUBCUT Administration Q24H MORRIS PFSH Acute 2 PFSH: Medical History Presence of surgical screw in left hand Erectile dysfunction Hypertension Hyperthyroidism Surgical History History of tonsillectomy Family History Mother , natural causes, IN LATE 40'S No problems noted. Father , AT AGE 60 Heart attack Social History Smoking and tobacco/nicotine status: former use of tobacco/nicotine Quit status (tobacco/nicotine): has quit using Alcohol intake: never Substance/Drug Use: current Substance/Drug use frequency: few times a week Marital status: Single Current occupational status: unemployed Vitals/I&O/Wt Last Vital Signs Temp 98.2 F 12/24/23 04:00 Pulse 73 12/24/23 04:00 Resp 17 12/24/23 04:00 BP 128/73 12/24/23 04:00 Pulse Ox 95 12/24/23 04:00 O2 Del Method Room Air 12/24/23 04:00 05/12/23/23 12/24/23 14:59 22:59 06:59 Intake Total 300 / 300 Balance 300 / 300 Weight last 48 hrs Weight 339 lb Weight 337 lb 8 oz Weight 337 lb 8 oz Weight 330 lb Physical Exam 2 Narrative: GENERAL: Patient is alert, awake and oriented x3. [] NECK: No jugular vein distension. [] HEENT: No cyanosis. No icterus. No pallor. [] HEART: Regular S1 and S2. No murmur, rub or gallop. [] LUNGS: Clear to auscultate bilaterally. [] CENTRAL NERVOUS SYSTEM: Grossly nonfocal. [] EXTREMITIES: Lower extremities with 1+ edema bilaterally. Data 12/25/23 03:58 12/25/23 03:58 A&P Assessment and plan (1) Non-ST elevation ND (NSTEMI): (2) Hypertension: Qualifiers: Hypertension type: unspecified Qualified Code(s): I10 - Essential (primary) hypertension Plan Patient has presented with non-ST elevation ND. NPO. We will proceed with coronary angiogram with PCI urgently as he is continuing to have chest discomfort. Risk and benefits of the procedure been discussed. Patient understands risks and benefits and wants to proceed. Dual antiplatelet therapy. Continue anticoagulation. Echocardiogram has been ordered. Thank you for involving us with care of this patient. We will continue to follow. please call with questions. Consult Attestations 2 Medical Necessity Statement: Care expected to cross 2 midnights. Coding Level of Care Code Acute Code for [facility] Diagnoses Non-ST elevation ND (NSTEMI) I21.4 Hypertension, unspecified type I10 Hypertension type: unspecified
[2023-12-24] MEDS: perflutren protein-a microsphr 0.22 mg/mL SDV 3 mL IV (06:49)
[2023-12-24 07:22] LABS: Glucose Point of Care 115 mg/dL (70-110)
--- NOTE | 2023-12-24 08:52 | XACV_ITS ---
Exam Room: [facility] Ht: 188 cm Wt: 154 kg BSA: 2.90 m2 Gender: Male : 1985 Any Known Allergies: Other Exam Priority: Routine Procedure(s): Procedure Description: Diagnostic procedure Procedure Description: PCI procedure Procedure Description: Drug Eluting Coronary Stent Procedure Description: PTCA Procedure Description: Miscellaneous Procedure Description: ACT Procedure Description: Coronary Angiography Diagnostic Cath Status: Urgent Diagnostic Findings * Left Main has no significant disease. * Patient has dual LAD system with a diagonal artery that is larger than LAD. Diagonal artery appears to give collaterals to PDA.. * Circumflex has no significant disease. * RCA is patent. * PDA is totally occluded in the proximal segment. * Collaterals are seen from left system. Posterior Descending Right: total thrombotic occlusion, THU: 0 flow. * Coronary angiography shows right dominance. PCI Status: Urgent PCI Indication: NSTE - ACS Interventional Findings * Procedure detail: Patient had collaterals from left system to PDA however he continued having chest pain. We decided to proceed with PCI of PDA. We engaged RCA with JR4 guide catheter. IV heparin was administered to maintain anticoagulation. Run-through wire was used to cross PDA occlusion. We serially dilated PDA with 2.0 x 20 mm semicompliant balloon. We then used 2.5 x 15 mm semicompliant balloon. Flow was restored with significant underlying stenosis. As lesions are long, we proceeded with placing 2 overlapping stents. And proximal segment 2.5 x 26 mm resolute Rewey drug-eluting stent was placed. Overlapping at distal end of the stent was second 2.5 x 18 mm resolute Pascual drug-eluting stent. At this time final angiogram was performed that showed excellent stent expansion and THU-3 flow. Guidewire and guide catheter were removed. Patient left the Protohistorian in a stable condition.. * Posterior Descending Right: 100% stenosis treated with a AB TREK 2.50X15 RX BALLOON, AB MINI TREK 2.00X20 RX BALLOON, MDT R PASCUAL 2.5X26 MATEO, and MDT R PASCUAL 2.5X18 MATEO. 0% residual stenosis, THU: 3 flow. Conclusions 1. Total thrombotic occlusion of PDA s/p successful revascularization with 2 stents.. 2. Posterior Descending Right was treated with a Balloon, Balloon, Drug Eluting Stent, and Drug Eluting Stent. Recommendations * Dual antiplatelet therapy with aspirin and Plavix. * High intensity statin therapy. * Outpatient cardiology follow-up. Interventional RX Recommendation: PCI w/o planned CABG Diagnostic RX Recommendation: PCI w/o planned CABG Anticoagulation: Heparin Pressures Phase:Rest AO : 134 / 96 ( 111 ) @ 10:27:00 AM 149 / 84 ( 100 ) @ 10:34:00 AM 143 / 99 ( 120 ) @ 11:00:00 AM Clinical Evaluation EBL: 5mL-10mL Procedural Details Procedure Consent Obtained. Pre-Procedure Time Out. Identified patient by full name and date of as verbalized by the patient/guarantor. Does the consent match the physician's order: Yes. Accurate & Complete Informed Consent: Yes. Inpatient/Outpatient History & Physical on Chart: Yes. If H&P is completed, is and addenduem needed: No; If yes, is the addendum complete: N/A. Visualize and Verify Site with Patient/Guarantor: N/A. Relevant Radiology Images available: N/A. Pre-op teaching completed and patient verbalized understanding. The risks, benefits, and alternatives of sedation and/or procedure were discussed by physician. The patient agrees to continue. Procedure started. Physician arrived. [facility] Clinical Fraility Score: 3: Managing Well. Protohistorian Indications: Other-nstemi. Chest Pain Symptom Assessment: Typical Angina Symptoms. Cardiovascular Instability: No. Correct patient, site and procedure confirmed by cath team. PERRLA. Strong, equal hand sap developer bilaterally. Lungs clear x 5 lobes. IV Site on Arrival: 20 gauge in the left anticubital. IV Fluids: 0.9% NaCl at KVO. 0 mL infused prior to lab instructor. Pre Procedural Pulses: bilateral dorsalis pedis was 3+. Pre Procedural Pulses: bilateral posterior tibial was 1+. Pre Procedural Pulses: right radial was 2+. Oxygen started at 2liters/min via nasal canula. right radial was prepped with chloroprep then draped in the usual sterile fashion. right groin was prepped with chloroprep then draped in the usual sterile fashion. Baseline sample Acquired. HR: 76 BPM. Equipment: 6F - Radial. Cardiac Cath Pack. ACIST Manifold Kit Model BT 2000. Heparinized Saline (2 units/mL), 1000 mL bag. Physician scrubbed in. Immediate Pre-Procedure Time Out. Correct Patient: Yes; Correct Procedure: Yes; Correct Site: Yes; Correct Patient Position: Yes; Correct Supplies: Yes; Dried Flammable Prep: Yes; Blood Products Available: N/A;. Lidocaine 1% infiltrated to the right radial. Arterial access obtained. A 5 [place] TIG catheter in over wire. Multiple views taken of left coronary artery. Catheter redirected to the RCA. Multiple views taken of right coronary artery. Catheter removed over the exchange wire. Inventory is CRD 6FR JR 4 GUIDE 100cm. 6 [place] JR 4 guide catheter was inserted over the wire. Runthrough guidewire was advanced through the guide catheter to lesion in the PDA. Inflation number : 1 A AB TREK 2.50X15 RX BALLOON was prepped and advanced across the R PDA , then inflated to 10 MANA for 0:13 seconds. Inflation number: 2 The AB TREK 2.50X15 RX BALLOON was reinflated across the R PDA, to 8 MANA for 0:18 seconds. Inflation number: 3 The AB TREK 2.50X15 RX BALLOON was reinflated across the R PDA, to 12 MANA for 0:13 seconds. Balloon out. Results checked. Inflation number : 4 A AB MINI TREK 2.00X20 RX BALLOON was prepped and advanced across the R PDA , then inflated to 8 MANA for 0:16 seconds. Inflation number: 5 The AB MINI TREK 2.00X20 RX BALLOON was reinflated across the R PDA, to 8 MANA for 0:06 seconds. Inflation number: 6 The AB MINI TREK 2.00X20 RX BALLOON was reinflated across the R PDA, to 10 MANA for 0:08 seconds. Inflation number: 7 The AB MINI TREK 2.00X20 RX BALLOON was reinflated across the R PDA, to 12 MANA for 0:12 seconds. Balloon out. Inflation number: 8 The AB TREK 2.50X15 RX BALLOON was reinflated across the R PDA, to 12 MANA for 0:16 seconds. Inflation number: 9 The AB TREK 2.50X15 RX BALLOON was reinflated across the R PDA, to 12 MANA for 0:13 seconds. Inflation number: 10 The AB TREK 2.50X15 RX BALLOON was reinflated across the R PDA, to 8 MANA for 0:06 seconds. Balloon out. Inflation Number : 11 A MDT R PASCUAL 2.5X26 MATEO -Lot Number# [id number] exp date 11/09/2024 was prepped and advanced across the R PDA. The stent was deployed at 12 MANA for 0:22 seconds. Stent balloon out over wire. Inflation Number : 12 A MDT R PASCUAL 2.5X18 MATEO -Lot Number# [id number] exp date 11/15/2024 was prepped and advanced across the R PDA. The stent was deployed at 12 MANA for 0:21 seconds. Inflation number: 13 The stent balloon was then re-inflated across the R PDA to 14 MANA for 0:08 seconds. Stent balloon out over wire. Wire out. ACT drawn. Results 326 seconds. Therapeutic limits - pre-heparin administration 90-150 seconds and monitoring heparin during a vascular procedure >250 seconds. Guide catheter out. Physician scrubbed out. A TR Band was successful obtaining hemostatsis at the Right Radial artery insertion site. TR band placed. Hemostasis obtained. Post Procedure: Pulses reassessed and unchanged. PERRLA. Strong, equal hand sap developer bilaterally. No VTE prophylaxis required. Contrast type used: Omnipaque 300 mgI/mL, 500 mL bottle. Complications: none. Estimated blood loss: 5mL-10mL. Responsiveness - Normal response to verbal stimuli; alert and oriented, PERRLA. Airway - Unaffected, no intervention required; spontaneous ventilation. Circulation: W/N/L, pulses unchanged. Nausea/Vomiting: N/A. Post-op diagnosis: total occlusion of PDA. Medication's Wasted: Heparin = 2000 units. Medication's Wasted: Lidocaine 1% = 18 mL. Medication's Wasted: Nitro = 49.8 mg. Medication's Wasted: Other = versed 1 mg. Total IV fluids: 65 mL. Procedure completed. Patient transferred by wheelchair to 1st floor. Vital chart was stopped. Access Site Site: Right Radial artery Sheath Size: 6 Fr Hemostasis Method: TR Band Hemostasis Success: Successful Procedure Medications Start: 9:15 AM Stop: 9:15 AM Medication: Benadryl Amount: 25 mg Route: I.V. Start: 9:19 AM Stop: 9:19 AM Medication: Versed Amount: 1 mg Route: I.V. Start: 9:22 AM Stop: 9:22 AM Medication: Fentanyl Amount: 50 mcg Route: I.V. Start: 9:25 AM Stop: 9:25 AM Medication: Nitrogylcerin Amount: 200 mcg Route: I.A. Start: 9:25 AM Stop: 9:25 AM Medication: Versed Amount: 1 mg Route: I.V. Start: 9:27 AM Stop: 9:27 AM Medication: Heparin Amount: 5000 units Route: I.V. Start: 9:35 AM Stop: 9:35 AM Medication: Heparin Amount: 9000 units Route: I.V. Start: 9:36 AM Stop: 9:36 AM Medication: Fentanyl Amount: 50 mcg Route: I.V. Start: 9:50 AM Stop: 9:50 AM Medication: Versed Amount: 1 mg Route: I.V. Start: 10:06 AM Stop: 10:06 AM Medication: Plavix Amount: 600 mg Route: P.O. I, the attending physician, have reviewed and verified all procedure medications. Yes, all medications given per verbal order History/Risk Factors Hypertension: Yes Dyslipidemia: No Peripheral Arterial Disease (PAD): No Myocardial Infarction (TN): No Obesity: Yes Renal Disease: No Tobacco Use: Former Prior Interventions PCI: No CABG: No Valve Surgery: No Report Signatures Finalized by Leonel Cano MD on 12/29/2023 10:00 PM
--- NOTE | 2023-12-24 08:55 | PC.NURSE ---
Notified that the pt will be going to laboratory helper for a procedure. No orders placed for meds to be given prior. Paperwork filled out the best I could along with consent signed and pulses marked. Pt was not prepped / shaved d/t short notice. Loc arrived to take pt to procedure at 0859.
--- NOTE | 2023-12-24 09:10 | W.PM.OPSUD ---
Surgery/Procedure H&P Update DATE OF PROCEDURE: December 24, 2023 DATE H&P PERFORMED: 12/24/23 H&P UPDATE INFORMATION: I have reviewed H&P completed within last 30 days, I have examined patient prior to procedure and No changes to prior documentation PREOP DIAGNOSIS: NSTEMI PRIMARY INDICATION FOR PROCEDURE: NSTEMI PLANNED PROCEDURE: Left heart cath with possible percutaneous coronary intervention PATIENT REASSESSED PRIOR TO SEDATION, WITH NO CHANGE NOTED: Yes PHYSICAL EXAM: alert, oriented x 3, clear to auscultation bilaterally and regular rate & rhythm OTHER PERTINENT EXAM FINDINGS: Moderate sedation AIRWAY EVAL/ANESTHESIA PLAN: normal airway, ASA III, Local Anesthesia, Risks, benefits & alternatives of sedation and/or procedure discussed and Patient agrees to continue as planned ADDITIONAL INFORMATION: Moderate sedation
--- NOTE | 2023-12-24 09:14 | PC.CHAP ---
Pastoral Care Encounter/Spiritual Assessment Type of Contact [] Declined tamale machine feeder visit [] Patient/Family/Request visit [] Outpatient visit [] Follow-up visit [] Physician referral [] Code/Alert [x] Routine visit [] Staff referral [] Actively dying [] Patient sleeping [] Family support [] [] Out of room [] Palliative care [] [] Receiving care in room [] Pre-surgical visit [] Trauma [] Long length of stay [] ICU visit [] Other: Relational/Emotional Strength [x] Patient feels connected with others/family/visitors/staff [] Distress [] Loneliness/isolation [] Abandonment Spirituality of Patient [x] Person of Mckayla [] Attends Yarsanism of their [place]ck[place]la [x] Believes in Prayer [] Reads Bible or Buddhism materials [] There are Spiritual issues to be addressed Bilingual Medical Receptionist Interventions [x] Prayer [] Active listening [] Non-anxious presence [x] Spiritual/emotional support [] Crisis/trauma care [] Spiritual counseling [] Bereavement support [] Provided bereavement packet [] Provided Bible/devotional materials [] Provided toy/stuffed animal, coloring book to patient or family member [] Provided Communion [] Anointing/[place] [] Salvation [x] Completed spiritual assessment [] Other: Impact on Illness or Injury [] Angry [] Fearful [] Anxious [] Often cries [] Exhaustion [] Unable to work [] Unable to attend nondenominational [] Unable to walk/stand [] Unable to read [] Unable to drive [] Unable to eat/drink [] Unable to sleep [] Unable to be with family [] Patient intubated [] Other: Summary Time spent with patient 5 min
[2023-12-24] MEDS: hydroCHLOROthiazide 25 mg Tablet 12.5 MG PO ×2 (11:16)
[2023-12-24] MEDS: carvedilol 25 mg Tablet PO ×2 (11:17→18:52)
[2023-12-24] MEDS: losartan 50 mg Tablet 100 MG PO (11:17)
[2023-12-24] MEDS: spironolactone 25 mg Tablet PO (11:17)
[2023-12-24] MEDS: amlodipine 10 mg Tablet PO (11:17)
[2023-12-24] MEDS: atorvastatin 40 mg Tablet PO (11:17)
[2023-12-24] MEDS: sodium chloride 0.9% 1,000 ML 100 ML IV ×2 (11:18→20:18)
[2023-12-24 12:18] LABS: Glucose Point of Care 106 mg/dL (70-110)
--- NOTE | 2023-12-24 16:43 | P.PN_ITS ---
Subjective 2 Subjective: Status post coronary angiogram this morning with placement of stents x2 to PDA. No current chest pain. Medications: Reviewed: Yes Vitals/I&O/Wt Last Vital Signs Temp 98.4 F 12/24/23 12:00 Pulse 72 12/24/23 14:00 Resp 14 12/24/23 13:55 BP 128/90 12/24/23 12:45 Pulse Ox 92 12/24/23 13:55 O2 Del Method Room Air 12/24/23 12:00 12/24/23 12/24/23 12/24/23 06:59 14:59 22:59 Intake Total 300 / 300 480 / 480 Balance 300 / 300 480 / 480 Weight last 48 hrs Weight 153.768 kg Weight 153.087 kg Weight 153.087 kg Weight 149.685 kg Physical Exam 2 Narrative: General: No acute distress, AO x3 HEENT: PERRLA, pupils bilaterally equal and reactive, pallors not present Chest: Normal vesicular breath sounds, no added sounds, equal good air entry bilaterally CVS: S1-S2 regular, no murmurs, no tachycardia, no gallops, no rubs Abdomen: Soft, nontender, no organomegaly, bowel sounds present Neuro: No focal deficits, no facial deformity, AO x3, power 5/5 in all limbs Data 12/24/23 02:52 12/24/23 02:52 A&P Assessment and plan (1) Non-ST elevation [place] (NSTEMI): Reviewed vitals, CBC, D-dimer, CMP, EKG, troponin series, chest x-ray, ER note, discussed with ER provider. 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 Chest tightness, intermittent stabbing pain, radiation to left arm. Cardiac risk factors including history of smoking, family history of heart disease. Hypertension, obesity, prediabetes versus diabetes. EKG with possible LVH, without obvious acute SD on my interpretation, pending official read. Troponin with mild elevation initially but with positive delta, 36 up to 99.53. Discussed with him NSTEMI, additional consultation with cardiology, aspirin, Lovenox, statin, continue carvedilol. Monitor on telemetry with risk of arrhythmia with NSTEMI. D-dimer is not elevated. No respiratory symptoms. Clinical presentation without suggestion of dissection of pneumonia, however, monitor for any changes in symptoms, blood pressure, complete cardiac evaluation. He is also on testosterone -additional risk factor. Nitroglycerin as needed. Acetaminophen as needed. Consider nitroglycerin drip if needed. Atorvastatin, benefit from change to high intensity statin at discharge. Check A1c. Monitor for risk of bleeding with aspirin, Lovenox anticoagulation. Follow-up CBC. Follow-up renal function. Discussed with him considerations regarding further workup, consideration of possible coronary angiography. N.p.o. for midnight. (2) Hypertension: Blood pressure is very currently 139/86. Continue home blood pressure medicines, carvedilol, amlodipine, irbesartan/HCTZ, spironolactone. Qualifiers: Hypertension type: unspecified Qualified Code(s): I10 - Essential (primary) hypertension Plan Prediabetes versus diabetes, he states prediabetes, although he is on metformin, A1c is not known, I cannot pull up any old values. He is not sure about what the A1c is. Hold metformin. Low-dose sliding scale while in the hospital. CC diet. Check A1c Obesity: Would benefit from follow-up with primary provider regarding weight loss options. Amoxicillin allergy: He is not sure what regarding what the allergy is, states has been told about it since he was little. Plan for today December 24, 2023. Status post angiogram today with placement of stents into PDA x 2. Continue aspirin, Plavix, statin, carvedilol and other antihypertensive regimen. Recheck CMP and kidney function in AM. Likely discharge upcoming 24 hours if remains stable. Attestations 2 Medical Necessity Statement*: s/p angiogram today for NSTEMI Coding Level of Care Code Acute Code for Chg Fwd Moderate MDM includes number and complexity of problems actively addressed during encounter, amount and/or complexity of data reviewed/ordered and described risk of complication, morbidity or mortality of management as documented Diagnoses Non-ST elevation SD (NSTEMI) I21.4 Hypertension, unspecified type I10 Hypertension type: unspecified
[2023-12-24 19:11] LABS: Glucose Point of Care 168 mg/dL (70-110)
[2023-12-24 21:34] LABS: Glucose Point of Care 161 mg/dL (70-110)
[2023-12-25] VITALS (56 sets, daily range): BP systolic 132–143; BP diastolic 93; PULSE 61–82; RESP 0–26; TEMP 36.4–36.8; O2SAT 93–97
[2023-12-25 04:17] LABS: Basophils % 0.3 %; Eosinophils # 0.1 10^3/uL (0.0-0.8); Eosinophils % 0.8 %; Hematocrit 40.6 % (37-53); Lymphocytes # 1.8 10^3/uL (0.8-4.8); Lymphocytes % 29.4 %; Mean Corpuscular HGB Conc 31.8 g/dL (30-55); Mean Corpuscular Hemoglobin 26.9 pg (27-33); Mean Corpuscular Volume 84.6 fl (82-101); Mean Platelet Volume 10.8 fL (7.4-10.4); Monocytes # 0.8 10^3/uL (0.2-0.9); Neutrophils # 3.45 10^3/uL (1.8-7.7); Neutrophils % 56.2 %; Nucleated Red Blood Cells % 0 %; Platelet Count 236 10^3/cmm (157-399); Red Cell Distribution Width 13.3 % (12.1-15.1); White Blood Count 6.15 10^3/uL (3.29-11.43)
[2023-12-25 04:38] LABS: Anion Gap 12.8 (5-19); Blood Urea Nitrogen 13 mg/dL (6-20); Carbon Dioxide 25 mmol/L (22-29); Chloride 105 mmol/L (98-107); Creatinine Clr Calc Pharmacy 198.1806; Glomerular Filtration Rate 108.8 mL/min (90-130); Glucose 116 mg/dL (65-115); Osmolality Calculated 289 mOsm/kg (285-295); Potassium 3.8 mmol/L (3.5-5.1); Sodium 139 mmol/L (136-145)
[2023-12-25 06:21] LABS: Glucose Point of Care 150 mg/dL (70-110)
--- NOTE | 2023-12-25 08:27 | P.PN_ITS ---
Subjective 2 Subjective: Patient had coronary angiogram yesterday that showed total thrombotic occlusion of PDA. Weak collaterals were noted from left system. As patient was continuing to have chest pain with uptrending troponins, we proceeded with PCI with 2 stents. He is chest pain-free and feeling well. Vitals/I&O/Wt Last Vital Signs Temp 98.2 F 12/25/23 07:19 Pulse 64 12/25/23 07:19 Resp 12 12/25/23 07:19 BP 143/93 12/25/23 07:19 Pulse Ox 93 12/25/23 07:19 O2 Del Method Room Air 12/25/23 07:19 12/24/23 12/25/23 12/25/23 22:59 06:59 14:59 Intake Total 1000 / 1480 945 / 2425 Balance 1000 / 1480 945 / 2425 Weight last 48 hrs Weight 336 lb Weight 339 lb Weight 337 lb 8 oz Weight 337 lb 8 oz Weight 330 lb Physical Exam 2 Narrative: GENERAL: Patient is alert, awake and oriented x3. [] NECK: No jugular vein distension. [] HEENT: No cyanosis. No icterus. No pallor. [] HEART: Regular S1 and S2. No murmur, rub or gallop. [] LUNGS: Clear to auscultate bilaterally. [] CENTRAL NERVOUS SYSTEM: Grossly nonfocal. [] EXTREMITIES: Lower extremities with no edema bilaterally. Data 12/25/23 03:58 12/25/23 03:58 A&P Assessment and plan (1) Non-ST elevation [place] (NSTEMI): (2) Hypertension: Qualifiers: Hypertension type: unspecified Qualified Code(s): I10 - Essential (primary) hypertension Plan Patient had presented with non-ST elevation [place]. Coronary angiogram demonstrated total thrombotic occlusion of the PDA. Underwent successful revascularization with 2 stents. Continue aspirin and Plavix. And uptitrate hydrochlorothiazide to 25 mg daily. Blood pressure is borderline elevated. Weight loss, low-sodium diet and exercise recommended Thank you for involving us with care of this patient. We will continue to follow. please call with questions. Attestations 2 Medical Necessity Statement*: Care expected to cross 2 midnights. Coding Level of Care Code Acute Code for [facility] Diagnoses Non-ST elevation [place] (NSTEMI) I21.4 Hypertension, unspecified type I10 Hypertension type: unspecified
[2023-12-25] MEDS: carvedilol 25 mg Tablet PO (09:20)
[2023-12-25] MEDS: hydroCHLOROthiazide 25 mg Tablet 12.5 MG PO (09:20)
[2023-12-25] MEDS: clopidogrel 75 mg Tablet PO (09:20)
[2023-12-25] MEDS: losartan 50 mg Tablet 100 MG PO (09:20)
[2023-12-25] MEDS: atorvastatin 40 mg Tablet PO (09:20)
[2023-12-25] MEDS: spironolactone 25 mg Tablet PO (09:20)
[2023-12-25] MEDS: amlodipine 10 mg Tablet PO (09:21)
[2023-12-25] MEDS: aspirin 81 mg EC Tablet PO (09:21)
[2023-12-25] MEDS: insulin lispro 100 unit/1 mL SUBCUT (09:23)
--- NOTE | 2023-12-25 12:44 | PC.NURSE ---
Discharge Note Patient discharged to [home] via [w/c to POV] accompanied by [his family]. 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 Mobile pharmacy medications and/or prescriptions provided. Belongings/home medications returned.
--- NOTE | 2023-12-25 17:35 | PM.DCS ---
Discharge Providers Date of Admission: 12/23/23 20:25 Date of Discharge: December 26, 2023 Attending Provider at Admission: Jacinto Pillai Attending Provider at Discharge: Frances Bauer MD Primary Care Provider: Vianca Chow Diagnoses at Discharge Discharge Diagnosis (1) Non-ST elevation NM (NSTEMI): Status: Acute (2) Hypertension: Status: Acute Qualifiers: Hypertension type: unspecified Qualified Code(s): I10 - Essential (primary) hypertension Reason for Visit Reason for Visit: chest tightness, sob Hospital Course Hospital Course 38-year-old male with past medical history of hypertension, smoking, prediabetes, presented to the hospital with chief complaints of chest pain. EKG showed possible LVH, no acute ST-T wave changes, however troponin trend continued to increase from 36-99. He was diagnosed with an NSTEMI. Started on treatment with aspirin Lovenox statin and cardiology was consulted. He underwent coronary angiogram on December 24, 2023 and received 2 stents to the PDA. Please see cardiology note and optical laboratory manager report for details. Patient feels well today. No further episode of chest pain since the procedure. He is being discharged today in stable condition. His home dose of simvastatin 10 has been discontinued. Instead he has been shifted to atorvastatin 40 mg p.o. daily. Prescription provided for aspirin and Plavix. Follow-up with cardiology nurse practitioner in [address] Cano in 1 month. Physical Exam Narrative: General: No acute distress, AO x3 HEENT: PERRLA, pupils bilaterally equal and reactive, pallors not present Chest: Normal vesicular breath sounds, no added sounds, equal good air entry bilaterally CVS: S1-S2 regular, no murmurs, no tachycardia, no gallops, no rubs Abdomen: Soft, nontender, no organomegaly, bowel sounds present Neuro: No focal deficits, no facial deformity, AO x3, power 5/5 in all limbs Discharge Data Studies Completed and Pending Completed Studies During Hospitalization Category Date Time Status XR chest 1V portable [id number] Urgent Exams 12/23/23 16:50 Completed CV. 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 No acute cardiopulmonary abnormality. Laboratory Results WBC 6.15 10^3/uL (3.29-11.43) 12/25/23 03:58 RBC 4.80 10^6/uL (3.85-5.65) 12/25/23 03:58 Hgb 12.90 g/dL (11.27-16.99) 12/25/23 03:58 Hct 40.6 % (37-53) 12/25/23 03:58 MCV 84.6 fl (82-101) 12/25/23 03:58 MCH 26.9 pg (27-33) L 12/25/23 03:58 MCHC 31.8 g/dL (30-55) 12/25/23 03:58 RDW 13.3 % (12.1-15.1) 12/25/23 03:58 Plt Count 236 10^3/cmm (157-399) 12/25/23 03:58 MPV 10.8 fL (7.4-10.4) H 12/25/23 03:58 Neut % (Auto) 56.2 % 12/25/23 03:58 Lymph % (Auto) 29.4 % 12/25/23 03:58 Summers % (Auto) 13.0 % 12/25/23 03:58 Eos % (Auto) 0.8 % 12/25/23 03:58 Baso % (Auto) 0.3 % 12/25/23 03:58 Neut # (Auto) 3.45 10^3/uL (1.8-7.7) 12/25/23 03:58 Lymph # (Auto) 1.8 10^3/uL (0.8-4.8) 12/25/23 03:58 Summers # (Auto) 0.8 10^3/uL (0.2-0.9) 12/25/23 03:58 Eos # (Auto) 0.1 10^3/uL (0.0-0.8) 12/25/23 03:58 Baso # (Auto) 0.0 10^3/uL (0.0-0.1) 12/25/23 03:58 Nucleated RBC % (auto) 0 % 12/25/23 03:58 Nucleated RBCs # 0.0 /100WBC 12/25/23 03:58 D-Dimer 0.46 ug/mLFEU (0-0.59) 12/23/23 17:52 Sodium 139 mmol/L (136-145) 12/25/23 03:58 Potassium 3.8 mmol/L (3.5-5.1) 12/25/23 03:58 Chloride 105 mmol/L (98-107) 12/25/23 03:58 Carbon Dioxide 25 mmol/L (22-29) 12/25/23 03:58 Anion Gap 12.8 (5-19) 12/25/23 03:58 BUN 13 mg/dL (6-20) 12/25/23 03:58 Creatinine 0.8 mg/dL (0.7-1.2) 12/25/23 03:58 GFR Calculation 108.8 mL/min (90-130) 12/25/23 03:58 Glucose 116 mg/dL (65-115) H 12/25/23 03:58 POC Glucose 150 mg/dL (70-110) H 12/25/23 06:17 Estimat Average Glucose 128 12/24/23 02:52 Hemoglobin A1c 6.1 % (4.0-6.0) H 12/24/23 02:52 Calculated Osmolality 289 mOsm/kg (285-295) 12/25/23 03:58 Calcium 9.0 mg/dL (8.5-10.5) 12/25/23 03:58 Total Bilirubin 0.4 mg/dL (0.15-1.2) 12/23/23 17:52 AST 23 U/L (0-40) 12/23/23 17:52 ALT 32 U/L (0-41) 12/23/23 17:52 Alkaline Phosphatase 118 U/L (40-130) 12/23/23 17:52 Troponin T Baseline 36 ng/L (0-15) H 12/23/23 17:52 Troponin T 120 Minute 99.53 ng/L (0-15) H 12/23/23 19:42 Delta Troponin T 63.53 ABS# (0-10) H* 12/23/23 19:42 Troponin T Hi Sens 6Hr 178.4 ng/L (0-15) H 12/23/23 22:52 Troponin T Hi Sens 6Hr Delta 142.4 ng/L (0-12) H* 12/23/23 22:52 Total Protein 7.0 g/dL (6.6-8.7) 12/23/23 17:52 Albumin 4.5 g/dL (3.5-5.2) 12/23/23 17:52 Globulin 2.5 g/dL (1.3-4.6) 12/23/23 17:52 Vitals Last Vital Signs Temp 98.2 F 12/25/23 07:19 Pulse 70 12/25/23 11:51 Resp 9 L 12/25/23 11:45 BP 143/93 12/25/23 12:07 Pulse Ox 95 12/25/23 11:51 O2 Del Method Room Air 12/25/23 09:48 Discharge Plan Discharge Patient Disposition: Home Condition: Stable Prescriptions: New atorvastatin 40 mg Tablet 40 mg PO DAILY 30 Days Qty: 30 0RF clopidogrel 75 mg Tablet 75 mg PO DAILY 30 Days Qty: 30 3RF aspirin 81 mg Tablet,Delayed Release (Dr/Ec) 81 mg PO DAILY 30 Days Qty: 30 3RF Continued irbesartan-hydrochlorothiazide 300-12.5 mg tablet 1 tab PO DAILY spironolactone 25 mg tablet 25 mg PO DAILY amlodipine 10 mg tablet 10 mg PO DAILY carvedilol 25 mg tablet 25 mg PO BID Rx Instructions: must administer with a meal/food metformin 500 mg tablet extended release 24 hr See Rx Instructions .ROUTE .COMPLEX Qty: 270 0RF Dose Instruction: Take 2 tablets by mouth twice daily Rx Instructions: Take 2 tablets by mouth twice daily testosterone 338 mg PO BID Discontinued simvastatin 10 mg tablet 10 mg PO DAILY Discharge Orders: Discharge Order (Routine); Ordered 12/25/23 Ordered By: Frances Bauer Referrals: Vianca Chow FNP [Primary Care Provider] - 01/02/24 1:30 pm Leonel Cano M.D [Physician] - 1 month (Your Dr. Cano follow up appointment will be scheduled during your Amita Kirk appointment. You can call them with any questions or concerns. Thank you.) Amita Kirk FNP [Nurse Practitioner] - 01/23/24 1:00 pm Discharge Diet: Cardiac Discharge Activity: Resume usual activity Patient Instructions: Aspirin (By mouth) (Adrienne Extra Strength, Adrienne Aspirin Children[facility],..., Atorvastatin (By mouth) (Lipitor, Atorvaliq), Clopidogrel (By mouth) (Plavix), Coronary Angioplasty (DC), Opioid Safety, Post Angiogram Home Care Instructions, Post Heart Attack Stoplight Stand Alone Forms: Work/School Release Discharge Attestations Time Spent in Discharge Care*: greater than 30 min Quality Metrics Clinical Quality Measures [ Acute Myocardial Infaction { Clinical Trial Participant: No; Contraindication to aspirin: None; Aspirin prescribed; Contraindication to statin: None; Statin prescribed; Contraindication to PCI: None; PCI performed;}] Coding Level of Care Code Acute Code for [facility] Fwd Diagnoses Non-ST elevation NM (NSTEMI) I21.4 Hypertension, unspecified type I10 Hypertension type: unspecified
== END 2023-12-25 12:41 | disposition home or self-care (01) ==
LOC: ER 19:26 → CSU 20:05
PROVIDERS: Internal Medicine; Physician Assistant; Admitting Provider Internal Medicine; Emergency Provider Emergency Medicine; PCP Nurse Practitioner Family; Visit Provider Student in an Organized Health Care Education/Training Program
DX: I21.4 Non-ST elevation (NSTEMI) myocardial infarction (principal); I10 Essential (primary) hypertension; R73.03 Prediabetes; E66.9 Obesity, unspecified; Z68.41 Body mass index [BMI] 40.0-44.9, adult; Z82.49 Family history of ischemic heart disease and other diseases of the circulatory system; Z87.891 Personal history of nicotine dependence
CPT/HCPCS: 36415; 36416; 71045; 80048; 80053; 82962; 83036; 84484; 85025; 85347; 85378; 93005; 93454; 96372; 96374; 96375; 96376; 99152; 99153; 99285; C1725; C1769; C1874; C1887; C1894; C8929; C9600; G0378; J1200; J1644; J1650; J1815; J2250; J3010; J3490; J7030; Q9956; Q9967

== ENCOUNTER 2024-04-06 09:56 | Outpatient (CLI) | payer OTHER, SELFPAY ==
[2024-04-06 11:19] LABS: Thyroid Stimulating Hormone 1.61 uIU/mL (0.27-4.20)
[2024-04-07 08:06] LABS: T3 Total 103 ng/dL (76-181)
== END 2024-04-06 09:57 | disposition home or self-care (01) ==
LOC: LAB 09:57
PROVIDERS: PCP Nurse Practitioner Family; Visit Provider Internal Medicine
DX: E05.90 Thyrotoxicosis, unspecified without thyrotoxic crisis or storm (principal)
CPT/HCPCS: 36415; 84439; 84443; 84480

== ENCOUNTER 2024-10-02 19:39 | Emergency (ER) | payer OTHER, SELFPAY ==
--- NOTE | 2024-10-02 19:42 | ECG_ITS ---
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 Measurements Intervals [place] Rate: 89 P: 10 TX: 174 QRS: -27 QRSD: 95 T: 46 QT: 338 QTc: 412 Interpretive Statements SINUS RHYTHM PROBABLE INFERIOR MYOCARDIAL INFARCTION , OF INDETERMINATE AGE [35 ms Q WAVE IN II/aVF] Compared to ECG 12/23/2023 18:43:16 Myocardial infarct finding now present Electronically Signed On 10-03-2024 17:59:22 QUALITY ASSURANCE CLERK by Leonel Cano M.D. [id number] [id number]
[2024-10-02 19:43] VITALS: BP 131/81; PULSE 86; RESP 18; TEMP 36.8; O2SAT 96
--- NOTE | 2024-10-02 20:37 | XRR_ITS ---
PROCEDURE INFORMATION: Exam: XR Chest Exam date and time: 10/03/2024 12:30 AM Age: 39 years old Clinical indication: Chest pressure; Prior surgery; Surgery date: 6+ months; Surgery type: Coronary stents; C/O chest pain; Additional info: Cp TECHNIQUE: Imaging protocol: Radiologic exam of the chest. Views: 1 view. COMPARISON: CR XR chest 1V portable [id number] 12/23/2023 4:58 PM FINDINGS: Lungs: Bibasilar atelectasis versus minimal infiltrate. Pleural spaces: Unremarkable. No pleural effusion. No pneumothorax. Heart/Mediastinum: Cardiomegaly and mild pulmonary vascular congestion. Bones/joints: Unremarkable. XR/XR chest 1V portable [id number] IMPRESSION: 1. Cardiomegaly and mild pulmonary vascular congestion. 2. Bibasilar atelectasis versus minimal infiltrate.
[2024-10-02 20:55] LABS: Basophils % 0.3 %; Eosinophils # 0.1 10^3/uL (0.0-0.8); Eosinophils % 0.8 %; Hematocrit 39.8 % (37-53); Lymphocytes # 2.3 10^3/uL (0.8-4.8); Lymphocytes % 29.8 %; Mean Corpuscular HGB Conc 32.4 g/dL (30-55); Mean Corpuscular Hemoglobin 27.2 pg (27-33); Mean Corpuscular Volume 83.8 fl (82-101); Mean Platelet Volume 10.7 fL (7.4-10.4); Monocytes # 0.5 10^3/uL (0.2-0.9); Monocytes % 6.7 %; Neutrophils # 4.72 10^3/uL (1.8-7.7); Neutrophils % 62.1 %; Nucleated Red Blood Cells % 0 %; Platelet Count 255 10^3/cmm (157-399); Red Blood Count 4.75 10^6/uL (3.85-5.65); Red Cell Distribution Width 13.8 % (12.1-15.1); White Blood Count 7.59 10^3/uL (3.29-11.43)
[2024-10-02 21:13] LABS: Troponin(5th) Baseline < 6 ng/L (0-15)
[2024-10-02 21:16] LABS: Blood Urea Nitrogen 19 mg/dL (6-20); Calcium 9.1 mg/dL (8.5-10.5); Carbon Dioxide 25 mmol/L (22-29); Chloride 100 mmol/L (98-107); Creatinine Clr Calc Pharmacy 259.9612; Glomerular Filtration Rate 150.8 mL/min (90-130); Glucose 151 mg/dL (65-115); Osmolality Calculated 289 mOsm/kg (285-295); Sodium 137 mmol/L (136-145)
[2024-10-02 21:17] LABS: Anion Gap 15.6 (5-19); Potassium 3.6 mmol/L (3.5-5.1)
--- NOTE | 2024-10-02 22:37 | ECG_ITS ---
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 Measurements Intervals [place] Rate: 77 P: 7 MO: 179 QRS: -18 QRSD: 102 T: 31 QT: 372 QTc: 421 Interpretive Statements SINUS RHYTHM POSSIBLE INFERIOR MYOCARDIAL INFARCTION , OF INDETERMINATE AGE [30 ms Q WAVE IN II/aVF] Compared to ECG 10/02/2024 19:45:45 No significant changes Electronically Signed On 10-03-2024 19:29:24 HEAD BELLHOP CAPTAIN by Leonel Cano M.D. [email or web address]
[2024-10-02 22:38] LABS: Bilirubin Urine Negative (Negative); Blood Urine Negative (Negative); Glucose Urine UA Negative (Normal); Ketones Urine Trace (Negative); Leukocyte Esterase Urine Negative (Negative); Nitrate Urine Negative (Negative); Protein Urine Negative (Negative); Specific Gravity, Urine 1.028 (1.005-1.030); Urine Appearance Clear (CLEAR); Urine Color Yellow (Yellow); Urobilinogen Urine 0.2 mg/dL (Negative); pH Urine 5.5 (5-7)
[2024-10-02 22:43] LABS: Add Urine Microscopic? YES; Bacteria Urine None Seen /hpf; RBC Urine 0-2 /hpf (0-2); Squamous Epithelial Cell Urine 0-5 /hpf (0-5); WBC Urine 0-5 /hpf (0-5)
[2024-10-02 23:21] LABS: Troponin 5 2HR Delta 0.00001 ABS# (0-10)
[2024-10-03 00:41] VITALS: BP 150/76; PULSE 74; RESP 17; O2SAT 96
--- NOTE | 2024-10-03 00:41 | W.ED.CHESTPA ---
HPI - Chest Pain General: Chief Complaint: Chest Pain Stated Complaint: CP Time Seen by Provider: 10/03/24 00:34 History of Present Illness: 39-year-old male patient comes in today with chest pain. Patient has a history of stent placement in November 2023. Patient was taken care of by Dr. Barrera but sees another routine quality assurance practice manager. Patient has an appointment to be seen on the of this month. Patient reports some intermittent chest pain for the last week. Patient appears nontoxic. Patient appears no pain. MD complaint: chest pain Pertinent past history: coronary artery disease Onset (ago): day(s) Timing of current episode: episodic Prior episodes: No Pain location: left chest Pain radiation: none Severity: mild Quality: sharp Relieving factors: nothing Exacerbating factors: nothing Treatment prior to arrival: none Risk Factors: Coronary artery disease risk factors: hypertension Thoracic aortic dissection risk factors: none Related Data Home Medications ?Medication ?Instructions ?Recorded ?Confirmed amlodipine 10 mg tablet 10 mg PO DAILY 11/03/20 04/01/24 carvedilol 25 mg tablet 25 mg PO BID 11/03/20 04/01/24 spironolactone 25 mg tablet 25 mg PO DAILY 11/03/20 04/01/24 irbesartan 300 1 tab PO DAILY 03/23/21 04/01/24 mg-hydrochlorothiazide 12.5 mg tablet methimazole 5 mg tablet 5 mg PO DAILY 04/01/24 04/01/24 Previous Rx's ?Medication ?Instructions ?Recorded aspirin 81 mg tablet,delayed 81 mg PO DAILY 30 days #30 tabs 12/25/23 release atorvastatin 40 mg tablet 40 mg PO DAILY #90 tabs 01/23/24 clopidogrel 75 mg tablet 75 mg PO DAILY #90 tabs 01/23/24 metformin 500 mg tablet,extended See Rx Instructions .Route 09/07/24 release 24 hr .COMPLEX #180 tabs Allergies Allergy/AdvReac Type Severity Reaction Status Date / Time amoxicillin Allergy unknown Verified 10/02/24 19:50 Review of Systems General: Reports: 10 or more systems reviewed and unremarkable except in HPI and below PFSH ED PFSH: Medical History Coronary artery disease Presence of surgical screw in left hand Erectile dysfunction Hypertension Hyperthyroidism Surgical History History of tonsillectomy Family History Mother , natural causes, IN LATE 40'S No problems noted. Father , AT AGE 60 Heart attack Social History Smoking and tobacco/nicotine status: former use of tobacco/nicotine Quit status (tobacco/nicotine): has quit using Alcohol intake: never Substance/Drug Use: current Substance/Drug use frequency: few times a week Marital status: Single Current occupational status: unemployed Physical Exam Const: COMMON NORMALS: patient oriented x3 and alert HENMT: COMMON NORMALS: normocephalic HEAD & SCALP: normocephalic Neck/C-Spine: GENERAL: Yes normal visual inspection Chest: CHEST: No tenderness Resp: EFFORT & INSPECTION: Yes able to speak in complete sentences Cardio: COMMON NORMALS: regular rate and regular rhythm RATE: regular rate RHYTHM: regular rhythm GI: COMMON NORMALS: non-tender Back/Pelvis: COMMON NORMALS: thoracic and lumbar spine normal to inspection Extremity: COMMON NORMALS: full ROM Neuro: COMMON NORMALS: patient oriented x3 SENSORIUM/ORIENTATION: Yes alert Skin: COMMON NORMALS: turgor normal GENERAL SKIN EXAM: turgor normal Course Vital Signs: Vital signs: Vital Signs Temperature 98.2 F 10/02/24 19:43 Pulse Rate 74 10/03/24 00:41 Respiratory Rate 17 10/03/24 00:41 Blood Pressure 150/76 10/03/24 00:41 Pulse Oximetry 96 10/03/24 00:41 Oxygen Delivery Me thod Room Air 10/03/24 00:41 MDM - Chest Pain Medical Decision Making 39-year-old male patient comes in today for complaints of chest discomfort. On exam patient appears nontoxic. Patient has some decreased breath sounds in the bases. Patient reports some intermittent chest discomfort for the last week. Patient has a history of coronary artery disease. Vital signs are unremarkable. Differential diagnosis ACS, stable angina, electrolyte imbalance, pneumonia. CBC was unremarkable. CMP was unremarkable. Troponin was 6 with no change of delta at 2 hour. Urinalysis was unremarkable. EKG showed no changes at [address] a note case management to have them see if they can move up patient's cardiology visit earlier in the month. Patient was stable and discharged home with recommendations for follow-up or return to the ER for worsening symptoms. Lab Data 10/02/24 20:49 10/02/24 20:49 Laboratory Results WBC 7.59 10^3/uL (3.29-11.43) 10/02/24 20:49 RBC 4.75 10^6/uL (3.85-5.65) 10/02/24 20: Hgb 12.90 g/dL (11.27-16.99) 10/02/24 20: Hct 39.8 % (37-53) 10/02/24 20: MCV 83.8 fl (82-101) 10/02/24 20: MCH 27.2 pg (27-33) 10/02/24 20: MCHC 32.4 g/dL (30-55) 10/02/24 20: RDW 13.8 % (12.1-15.1) 10/02/24 20: Plt Count 255 10^3/cmm (157-399) 10/02/24 20: MPV 10.7 fL (7.4-10.4) H 10/02/24 20: Neut % (Auto) 62.1 % 10/02/24 20: Lymph % (Auto) 29.8 % 10/02/24 20:49 [place] % (Auto) 6.7 % 10/02/24 20:49 Eos % (Auto) 0.8 % 10/02/24: Baso % (Auto) 0.3 % 10/02/24:49 Neut # (Auto) 4.72 10^3/uL (1.8-7.7) 10/02/24 20:49 Lymph # (Auto) 2.3 10^3/uL (0.8-4.8) 10/02/24 20:49 [place] # (Auto) 0.5 10^3/uL (0.2-0.9) 10/02/24 20:49 Eos # (Auto) 0.1 10^3/uL (0.0-0.8) 10/02/24 20:49 Baso # (Auto) 0.0 10^3/uL (0.0-0.1) 10/02/24 20:49 Nucleated RBC % (auto) 0 % 10/02/24 20:49 Nucleated RBCs # 0.0 /100WBC 10/02/24 20:49 Sodium 137 mmol/L (136-145) 10/02/24 20:49 Potassium 3.6 mmol/L (3.5-5.1) 10/02/24 20:49 Chloride 100 mmol/L (98-107) 10/02/24 20:49 Carbon Dioxide 25 mmol/L (22-29) 10/02/24 20:49 Anion Gap 15.6 (5-19) 10/02/24 20:49 BUN 19 mg/dL (6-20) 10/02/24 20:49 Creatinine 0.6 mg/dL (0.7-1.2) L 10/02/24 20:49 GFR Calculation 150.8 mL/min (90-130) H 10/02/24 20:49 Glucose 151 mg/dL (65-115) H 10/02/24 20:49 Calculated Osmolality 289 mOsm/kg (285-295) 10/02/24 20:49 Calcium 9.1 mg/dL (8.5-10.5) 10/02/24 20:49 Troponin T Baseline < 6 ng/L (0-15) 10/02/24 20:49 Troponin T 120 Minute 6.00 ng/L (0-15) 10/02/24 22:56 Delta Troponin T 0.88877 ABS# (0-10) 10/02/24 22:56 Urine Color Yellow (Yellow) 10/02/24 21:35 Urine Appearance Clear (CLEAR) 10/02/24 21:35 Urine pH 5.5 (5-7) 10/02/24 21:35 Ur Specific [place] 1.028 (1.005-1.030) 10/02/24 21:35 Urine Protein Negative (Negative) 10/02/24 21:35 Urine Glucose (UA) Negative (Normal) 10/02/24 21:35 Urine Ketones Trace (Negative) 10/02/24 21:35 Urine Blood Negative (Negative) 10/02/24 21:35 Urine Nitrate Negative (Negative) 10/02/24 21:35 Urine Bilirubin Negative (Negative) 10/02/24 21:35 Urine Urobilinogen 0.2 mg/dL (Negative) 10/02/24 21:35 Ur Leukocyte Esterase Negative (Negative) 10/02/24 21:35 Urine RBC 0-2 /hpf (0-2) 10/02/24 21:35 Urine WBC 0-5 /hpf (0-5) 10/02/24 21:35 Ur Squamous Epith Cells 0-5 /hpf (0-5) 10/02/24 21:35 Amorphous Sediment Not Reportable 10/02/24 21:35 Urine Bacteria None seen /hpf (NONE) 10/02/24 21:35 Hyaline Casts 0.40 /lpf 10/02/24 21:35 XR interpretation done by ED provider, pending radiology final review EKG Data EKG 1: I personally reviewed and interpreted this EKG as follows: EKG interpretation date: 10/02/24 EKG interpretation time: 19:45 Prior EKG tracings: not available for review Interpretation: EKG showed a sinus rhythm regular rate at [address] elevation or ectopy is noted. No prior exam was available for comparison. EKG 2: I personally reviewed and interpreted this EKG as follows: EKG interpretation date: 10/02/24 EKG interpretation time: 21:35 Prior EKG tracings: available for review Interpretation: EKG showed a sinus rhythm with a regular rate at [address] elevation or ectopy was noted. When compared to prior exam at 5 no changes were noted. Discharge Plan Discharge Patient Disposition: Home Clinical Impression: Atypical chest pain Condition: Stable Prescriptions: No Action irbesartan-hydrochlorothiazide 300-12.5 mg tablet 1 tab PO DAILY spironolactone 25 mg tablet 25 mg PO DAILY amlodipine 10 mg tablet 10 mg PO DAILY carvedilol 25 mg tablet 25 mg PO BID Rx Instructions: must administer with a meal/food atorvastatin 40 mg tablet 40 mg PO DAILY Qty: 90 3RF clopidogrel 75 mg tablet 75 mg PO DAILY Qty: 90 3RF methimazole 5 mg tablet 5 mg PO DAILY metformin 500 mg tablet extended release 24 hr See Rx Instructions .ROUTE .COMPLEX Qty: 180 0RF Dose Instruction: Take 2 tablets by mouth twice daily Rx Instructions: Take 2 tablets by mouth twice daily aspirin 81 mg Tablet,Delayed Release (Dr/Ec) 81 mg PO DAILY 30 Days Qty: 30 3RF Discharge Orders: Discharge ED (Routine); Ordered 10/03/24 Ordered By: Roel Church Referrals: Vianca Chow FNP [Primary Care Provider] - Discharge Diet: Usual diet Discharge Activity: Increase activity as tolerated Patient Instructions: Chest Pain (ED) Activity Restrictions/Additional Instructions: Continue with routine medications. Follow-up with quality assurance practice manager for further evaluation. Return to ED for worsening symptoms or new concerns. Print Language: Czech Coding Level of Care Code ED Registered Dietitian for Mikaela Oliva
[2024-10-03] MEDS: LORazepam 1 mg Tablet PO (01:06)
[2024-10-03 01:08] VITALS: BP 150/76; PULSE 82; RESP 17; O2SAT 97
== END 2024-10-03 01:10 | disposition home or self-care (01) ==
PROVIDERS: Emergency Medicine; Emergency Provider Nurse Practitioner Family; PCP Nurse Practitioner Family
DX: R07.89 Other chest pain (principal); Z79.02 Long term (current) use of antithrombotics/antiplatelets; Z79.84 Long term (current) use of oral hypoglycemic drugs; Z79.82 Long term (current) use of aspirin; Z87.891 Personal history of nicotine dependence; I25.10 Atherosclerotic heart disease of native coronary artery without angina pectoris; I10 Essential (primary) hypertension
CPT/HCPCS: 36415; 71045; 80048; 81001; 84484; 85025; 93005; 99285

== ENCOUNTER 2024-12-11 07:22 | Outpatient (CLI) | payer OTHER, SELFPAY ==
[2024-12-11 08:34] LABS: Free T4 Free Thyroxine 1.45 ng/dL (0.82-1.77); Thyroid Stimulating Hormone 1.41 uIU/mL (0.27-4.20)
[2024-12-12 06:54] LABS: T3 Total 92 ng/dL (76-181)
== END 2024-12-11 07:23 | disposition home or self-care (01) ==
PROVIDERS: PCP Nurse Practitioner Family; Visit Provider Internal Medicine
DX: E05.90 Thyrotoxicosis, unspecified without thyrotoxic crisis or storm (principal); R63.5 Abnormal weight gain
CPT/HCPCS: 36415; 84439; 84443; 84480

== ENCOUNTER 2025-04-27 07:56 | Outpatient (CLI) | payer OTHER, SELFPAY ==
[2025-04-27 09:46] LABS: Estmated Average Glucose 131; Hemoglobin A1C 6.2 % (4.0-6.0)
[2025-04-27 09:56] LABS: Alanine Aminotransferase 33 U/L (0-41); Albumin Level 4.4 g/dL (3.5-5.2); Alkaline Phosphatase 143 U/L (40-130); Anion Gap 15.0 (5-19); Aspartate Amino Transferase 23 U/L (0-40); Blood Urea Nitrogen 16 mg/dL (6-20); Calcium 9.4 mg/dL (8.5-10.5); Carbon Dioxide 25 mmol/L (22-29); Chloride 100 mmol/L (98-107); Cholesterol 201 mg/dL (0-200); Globulin 3.2 g/dL (1.3-4.6); Glucose 147 mg/dL (65-115); HDL Cholesterol 45 mg/dL (60-100); Osmolality Calculated 286 mOsm/kg (285-295); Potassium 4.0 mmol/L (3.5-5.1); Sodium 136 mmol/L (136-145); Thyroid Stimulating Hormone 1.06 uIU/mL (0.27-4.20); Total Protein 7.6 g/dL (6.6-8.7); Triglycerides 248 mg/dL (0-150)
[2025-04-27 09:57] LABS: Creatinine Urine, Random 185 mg/dL (39-259); Microalbum Creatinine Ratio Ur 5 mg/dL (0-20)
[2025-04-27 10:39] LABS: Free T4 Free Thyroxine 1.18 ng/dL (0.82-1.77)
== END 2025-04-27 07:57 | disposition home or self-care (01) ==
PROVIDERS: PCP Nurse Practitioner Family; Visit Provider Internal Medicine
DX: R79.89 Other specified abnormal findings of blood chemistry (principal); E04.1 Nontoxic single thyroid nodule; E05.90 Thyrotoxicosis, unspecified without thyrotoxic crisis or storm
CPT/HCPCS: 36415; 80053; 80061; 82044; 83036; 84403; 84439; 84443; 84480

== ENCOUNTER 2025-06-18 07:10 | Outpatient (CLI) | payer OTHER, SELFPAY ==
[2025-06-18 07:41] LABS: Hematocrit 41.8 % (37-53); Hemoglobin 13.60 g/dL (11.27-16.99); Mean Corpuscular HGB Conc 32.5 g/dL (30-55); Mean Corpuscular Hemoglobin 27.3 pg (27-33); Mean Corpuscular Volume 83.9 fl (82-101); Nucleated Red Blood Cells % 0 %; Platelet Count 265 10^3/cmm (157-399); Red Blood Count 4.98 10^6/uL (3.85-5.65); White Blood Count 7.51 10^3/uL (3.29-11.43)
[2025-06-18 08:42] LABS: Follicle Stimulating Hormone 3.1 mIU/mL (1.5-12.4)
== END 2025-06-18 07:11 | disposition home or self-care (01) ==
PROVIDERS: PCP Nurse Practitioner Family; Visit Provider Internal Medicine
DX: R79.89 Other specified abnormal findings of blood chemistry (principal); E04.1 Nontoxic single thyroid nodule
CPT/HCPCS: 36415; 83001; 83002; 84146; 84403; 85025

== ENCOUNTER 2025-07-26 10:44 | Outpatient (CLI) | payer OTHER, SELFPAY ==
--- NOTE | 2025-07-26 11:15 | US_ITS ---
WS: [id number] THYROID ULTRASOUND HISTORY: thyroid nodule COMPARISON: 08/10/2020 Right lobe: 3.8 cm x 2.7 cm x 7.0 cm (w x ap x l). Volume: 34.4 cm3. Enlarged heterogeneous RIGHT thyroid. There is no well-formed thyroid. The entire gland is slightly heterogeneous within the background that is isoechoic. 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 Left lobe: 3.3 cm x 2.7 cm x 6.2 cm (w x ap x l). Volume: 26.8 cm3. Enlarged heterogeneous thyroid. No discrete nodule. There are a few areas of decreased echogenicity without borders. No echogenic foci. 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 Isthmus: 0.9 cm. Enlarged and heterogeneous. US/US thyroid [id number] IMPRESSION: 1. 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 2. No identifiable mass or nodule for biopsy.
== END 2025-07-26 10:45 | disposition home or self-care (01) ==
LOC: RAD 10:45
PROVIDERS: PCP Nurse Practitioner Family; Visit Provider Family Medicine
DX: E04.1 Nontoxic single thyroid nodule (principal); R93.89 Abnormal findings on diagnostic imaging of other specified body structures; E04.9 Nontoxic goiter, unspecified; E07.89 Other specified disorders of thyroid
CPT/HCPCS: 76536